=== PATIENT | female | born 1930 | race Caucasian/White ===

== ENCOUNTER → 2017-02-08 | Outpatient (CLI) | payer MEDICARE ==
[~2017-02-08] MED LIST: ACET50TA PO; AMLO10TA PO; ASPI81TA85 PO; AVAP75TA PO; BACT2OIN2 TOP; BUSP15TA47 PO; CALC-190 PO; CALCCHW8 PO; CICL0.776 EX; CIPR500T89 PO; ESTR625TA PO; ESTRADIOL; EYE VITE; EYECAP PO; FISH100049 PO; MULTCAP PO; NYST10CR EXT; PERCOCET PO; PROT0.1O EX; PROTPAK PO; SIMV40TA2 PO; VITATAB11 PO; XANA0.25 PO
[2017-02-08 11:32] LABS: MEAN CORPUSCULAR HEMOGLOBIN 27.4 pg (27.0-33.0); MEAN CORPUSCULAR HGB CONC 31.1 g/dl (32.0-36.5); MEAN CORPUSCULAR VOLUME 88.1 fl (80.0-96.0); RED CELL DISTRIBUTION WIDTH 14.2 % (11.5-14.5); WHITE BLOOD COUNT 10.3 K/mm3 (4.0-10.0)
[2017-02-08 11:41] LABS: INR 0.96
[2017-02-08 11:44] LABS: CALCIUM OXALATE CRYSTALS LARGE
[2017-02-08 12:08] LABS: ALBUMIN 3.2 GM/DL (3.2-5.2); ALBUMIN/GLOBULIN RATIO 0.63 (1.00-1.93); BILIRUBIN,TOTAL 0.4 MG/DL (0.2-1.0); CALCIUM LEVEL 9.2 MG/DL (8.8-10.2); CREATININE FOR GFR 1.3 MG/DL (0.55-1.02); GLOMERULAR FILTRATION RATE 41.2 (>32); POTASSIUM SERUM 3.9 MEQ/L (3.5-5.1); TOTAL PROTEIN 8.3 GM/DL (6.4-8.2)
--- NOTE | 2017-02-08 12:09 | REP ---
Clinical: Preoperative assessment . Comparison: 02/19/2015 . Technique: PA and lateral. Findings: The mediastinum and cardiac silhouette are normal. The airway is midline and patent. The lung weaver are clear and without acute consolidation, effusion, or pneumothorax; trace left basilar chronic changes remain stable. The skeletal structures are intact and normal. Impression: 1. No acute cardiopulmonary process. Signed by [place] Gabriel MD 02/08/2017 12:00 P
--- NOTE | 2017-02-09 14:31 | ECGEPIP ---
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
== END ==
LOC: M ADMPAT 10:06
PROVIDERS: ATTEND Orthopaedic Surgery
DX: Z01.818 Encounter for other preprocedural examination (principal); M17.12 Unilateral primary osteoarthritis, left knee; Z79.899 Other long term (current) drug therapy

== ENCOUNTER 2017-02-21 11:53 | Inpatient (IN) | payer MEDICARE ==
[2017-02-08 11:17] VITALS: BP 138/76
--- NOTE | 2017-02-17 08:56 | HPE ---
DATE OF ADMISSION: 02/21/2017 CHIEF COMPLAINT: Left knee pain and stiffness. ATTENDING PHYSICIAN: Dr. Dennis Tian HISTORY: This is a pleasant 86-year-old female patient with progressively worsening left knee pain and stiffness. She failed to improve with conservative management. She has elected for surgery for continued symptoms. She has pain with weightbearing activities and activities of daily living. She has consented for a left total knee arthroplasty by Dr. Tian. Medical optimization by Dr. Caal. X-rays notable for end-stage degenerative changes of the left knee. ALLERGIES: - CELEBREX - CODEINE - PENICILLINS CURRENT MEDICATIONS: - fish oil 1000 mg 1 tablet twice a day - aspirin 81 mg 1 tablet once per day (she will discontinue that 5 days prior to surgery) - vitamin B complex 1 tablet once per day - Protonix 40 mg 1 tablet once per day - calcium 600 mg with vitamin D 1 tablet twice a day - multivitamin once per day - buspirone 10 mg 1 tablet twice a day - Premarin 0.625 mg apply as needed topically - Zocor 40 mg 1 tablet in the evening - Tylenol as needed - Avapro 300 mg 1 tablet once per day - Norvasc 10 mg 1 tablet once per day MEDICAL HISTORY (Includes): 1. End-stage degenerative changes of the left knee. 2. Hypertension. 3. Chronic renal failure stage III. 4. Gastric reflux disease. 5. Irritable bowel syndrome. 6. Migraines. 7. Elevated cholesterol. 8. Cervical and lumbar degenerative disc disease. 9. History of a deep vein thrombosis (DVT) in 2008. 10. History of Clostridium difficile. PAST SURGICAL HISTORY (Includes): 1. Right total knee arthroplasty. 2. Cataract surgery. 3. Tubal ligation. 4. Hysterectomy. 5. Carpal tunnel release. 6. Bilateral knee scopes. 7. Bladder suspension. 8. Colonoscopies SOCIAL HISTORY: She does not smoke and she does not use alcohol. She is retired. FAMILY HISTORY: Noncontributory. REVIEW OF SYSTEMS: Denies fever or chills. Denies chest pain, shortness breath or cough. Denies difficulty breathing. Denies abdominal pain. Denies nausea or vomiting. Has persistent pain with weightbearing activities in her left knee. Denies recent upper respiratory infection (URI) or urinary tract infection (UTI) symptoms. PHYSICAL EXAMINATION: Today, reveals a well-nourished, well-developed, alert female patient. She ambulates with a slow gait. She uses a cane for ambulation. Exam of the left knee does reveal irritability on knee range of motion. Range of motion is near full, stable to varus and valgus stress. The skin is intact. No erythema, edema or ecchymosis. She can sensate light touch as well. Perfused left lower extremity. Dorsalis pedis, posterior tibial pulses are palpable. Neck is supple without adenopathy or jugular venous distention (JVD). Lungs: Clear to auscultation without rales or wheeze. Heart: Regular rate and rhythm. Abdomen: Bowel sounds are present. Height 5 feet 5 inches, weight 206 pounds, temperature 98.0, pulse 88, respirations 20, blood pressure 142/68. LABORATORY DATA: PT 12.9, INR 0.96. Urinalysis (UA) appears to be contaminated, urine culture is contaminated. Sed rate is 63. WBC count is 10.3, RBC count is 4.0, hemoglobin 11.1, hematocrit 35.8, glucose 118, BUN 20, creatinine 1.30. Sodium 140, potassium 3.9. Nasal and sinus culture normal eve. Chest x-ray no acute cardiopulmonary process noted. EKG multi focal atrial rhythm. IMPRESSION: Symptomatic osteoarthritis of the left knee. PLAN: Consented for a left total knee arthroplasty by Dr. Tian.
[~2017-02-21] VITALS: Ht 165.1 cm; Wt 93.0 kg
[2017-02-21] MEDS ORDERED: LR 1,000 ML IV SCH ×4 (12:15→19:00)
[2017-02-21] MEDS ORDERED: ceFAZolin 2 GM/D5W 50 ML IV BAG (J0690) As Ordered ONE ×2 (13:00→16:20)
[2017-02-21] MEDS ORDERED: ACETAMINOPHEN 500 MG TAB As Ordered ONE (13:01)
[2017-02-21] MEDS ORDERED: ACETAMINOPHEN 500 MG TAB PO ONE (13:15)
[2017-02-21] MEDS ORDERED: COUM1TAB17 PO (13:24)
[2017-02-21] MEDS ORDERED: MIDAZOLAM INJ 2 MG/2 ML VIAL (J2250) As Ordered ONE ×2 (14:57→16:50)
[2017-02-21] MEDS ORDERED: fentaNYL 100 MCG/2 ML INJECTION (J3010) As Ordered ONE ×2 (14:57→16:50)
[2017-02-21] MEDS: fentaNYL 100 MCG/2 ML INJECTION (J3010) IV PRN ×2 (15:06→15:10)
[2017-02-21] MEDS: MIDAZOLAM INJ 2 MG/2 ML VIAL (J2250) IV PRN ×2 (15:06→15:10)
[2017-02-21] MEDS: BUPIVACAINE HCL 0.5% 10 ML VIAL As Ordered ONE ×2 (15:34→17:17)
[2017-02-21] MEDS ORDERED: TRANEXAMIC ACID 100 MG/ML 10ML VIAL As Ordered ONE (15:35)
[2017-02-21] MEDS ORDERED: BUPIVACAINE HCL 0.25% 10 ML VIAL As Ordered ONE (15:36)
[2017-02-21] MEDS ORDERED: EPINEPHrine INJ 1 MG/ML 1ML AMP As Ordered ONE (15:36)
[2017-02-21] MEDS: BUPIVACAINE HCL 0.25% 30 ML VIAL As Ordered ONE ×2 (15:36→17:19)
[2017-02-21] MEDS: fentaNYL 100 MCG/2 ML INJECTION (J3010) As Ordered ONE ×2 (15:36→17:19)
[2017-02-21] MEDS ORDERED: CLINDAMYCIN INJ 900MG/6ML VIAL As Ordered ONE (15:37)
[2017-02-21] MEDS ORDERED: ceFAZolin 1GM INJ (J0690) As Ordered ONE (16:19)
[2017-02-21] MEDS ORDERED: PROPOFOL 200 MG/20 ML VIAL As Ordered ONE ×2 (16:57→17:44)
[2017-02-21] MEDS ORDERED: ePHEDrine SULFATE 25 MG/5 ML(5MG/ML) SYRINGE As Ordered ONE (17:10)
[2017-02-21] MEDS ORDERED: PHENYLephrine HCL 500 MCG/5 ML (100MCG/ML) SYRINGE (J2370) As Ordered ONE (17:10)
[2017-02-21] MEDS ORDERED: BUPIVACAINE LIPOSOME/PF 1.3% 20 ML VIAL (13.3MG/ML)(EXPAREL) As Ordered ONE (17:28)
[2017-02-21] MEDS ORDERED: ONDANSETRON 4MG/2ML VIAL (J2405) As Ordered ONE (17:45)
[2017-02-21] MEDS ORDERED: MORPHINE 1MG/ML IN 0.9% NACL 100ML IV BAG As Ordered ONE (18:05)
[2017-02-21] MEDS ORDERED: NALBUPHINE HCL 10 MG/ML AMP (J2300) IV PRN (19:00)
[2017-02-21] MEDS ORDERED: NALOXONE INJ 0.4 MG/1 ML VIAL (J2310) IV PRN (19:00)
[2017-02-21] MEDS ORDERED: fentaNYL 100 MCG/2 ML INJECTION (J3010) IV PRN (19:00)
[2017-02-21] MEDS ORDERED: MORPHINE 1MG/ML IN 0.9% NACL 100ML IV BAG IV PRN (19:00)
[2017-02-21] MEDS ORDERED: ONDANSETRON 4MG/2ML VIAL (J2405) IV PRN ×2 (19:00)
[2017-02-21] MEDS ORDERED: EPIDURAL/PCA KEYS XX PRN (19:00)
[2017-02-21] MEDS ORDERED: diphenhydrAMINE INJ 50MG/ML VIAL (J1200) IV PRN (19:00)
--- NOTE | 2017-02-21 19:14 | RO ---
DATE OF PROCEDURE: 02/21/2017 PREPROCEDURE DIAGNOSIS: Left knee valgus degenerative arthritis. POSTPROCEDURE DIAGNOSIS: Left knee valgus degenerative arthritis. OPERATIVE PROCEDURE: Left total knee arthroplasty using a size 2.5 cruciate retaining femoral component with a 2.5 tibial tray and a 32 mm polyethelene button and a 12.5 rotating platform poly insert. Prosthesis made by [employer], is a PFC knee. All components were cemented. SURGEON: Jade Tian MD MENTAL HEALTH PROGRAM MANAGER: Justus Watts MD ANESTHESIA: Spinal with left femoral nerve block. SPECIMENS: Joint surface. ESTIMATED BLOOD LOSS: Less than 50 mL. DESCRIPTION OF PROCEDURE: Antibiotics were given intravenously preoperatively, and successful left femoral nerve block and then a spinal anesthetic was established. Tourniquet placed on the left upper thigh and not inflated. The left lower extremity was prepped and draped in the usual sterile fashion. After appropriate time-out, the tourniquet was inflated. Then the longitudinal incision was made for a medial parapatellar approach to the knee. Bovie cautery was used to coagulate crossing vessels. The arthrotomy was then performed. Minimal limited dissection of the proximal medial tibial plateau was performed because of the valgus alignment of the knee. The patella was then everted and the knee flexed. The anterior cruciate ligament (ACL) was debrided. Drill placed down the center of the femoral canal followed by the distal femoral cutting jig set at 5 degrees valgus cut at 10 mm resection level for a valgus knee. The block was pinned into position. Distal femoral cut performed. AP sizing jig measured for 2.5 size femoral component and there was no excessive posterior femoral wear, so the skids were placed as they laid and then the 3 degrees external rotation block was applied and pinned into position. Then the four-in-one block applied. The epicondylar axis appeared to show good alignment and white sideline appeared to be perpendicular in terms of rotation of the femoral component. I then performed the anterior posterior chamfer cuts. I then exposed the proximal tibia using the extramedullary alignment jig to be sure we were parallel to mechanical axis. Referenced off the lateral tibial condyle at 4 mm resection level and in the opposite measured at 6. It appeared to be parallel, thus I pinned the block into that position. Extramedullary niles was used afterward to confirm good position. Then the proximal tibial osteotomy performed. We then placed the laminar biomaterials engineer laterally, performed a completion medial meniscectomy, debrided the posterior and medial osteophytes then placed the laminar biomaterials engineer medially and performed a completion lateral meniscectomy with debridement of posterolateral osteophytes. Then the spacer blocks were applied and she actually had very symmetric balancing despite the valgus knee in terms of mediolateral tightness and the 12.5 block fit the best. There was good stability with varus valgus stress testing. We then exposed the proximal tibia once again and a 2.5 tibial tray fit the best. It was pinned into position followed by the reamer and broach and then the trial polyethylene was placed and the trial femoral component, brought the knee to extension, everted the patella, performed a patellar osteotomy, sized for a 32 button. Lug holes were drilled. The patellar prosthesis was placed and patellofemoral tacking was actually anatomic. Again, good stability with varus valgus stress testing both in flexion and extension was noted, thus I felt these were the appropriate size components to use. Then removed all the trial components, drilling the lug holes for the femur, and prepared the bony surfaces for cementing with a copious amount of pulsatile lavage irrigant solution as the cement was being mixed on the back table. After all the surfaces were thoroughly dried, I cemented the tibial tray, removed excess cement, placed polyethylene and cemented the femoral component. Removed excess cement. Brought the knee into extension, everted the patella, and cemented the patellar button and held it with a clamp until the cement had hardened and while we were waiting for it to harden copiously pulsatile lavage irrigated out the knee joint and then instilled the Tranexamic acid. Once the cement had hardened, we used a total of 20 mL vial of Exparel, diluted up to 60 mL volume with normal saline and used that to inject Exparel in the periosteum of the femur and the tibia as well and then we closed the capsule with two #1 PDS sutures in the apex of the wound and one in the medial peripatellar area, then a running #1 PDS Stratafix was used around the capsule and then we placed more Exparel in the deep tissues, not superficial around the quad tendon and patellar tendon. We irrigated again between layers, closed the deep subdermal tissues with interrupted #2-0 PDS sutures. Skin was closed with bianca, covered by Adaptic dry sterile bulky dressing. The tourniquet was released after we had closed the capsule. Then she was transferred to the recovery room in stable condition. There were no intraoperative complications.
[2017-02-21 20:24] VITALS: BP 199/91
[2017-02-21 20:54] VITALS: BP 150/70
[2017-02-21] MEDS ORDERED: ALPRAZolam 0.25 MG TAB PO PRN (21:00)
[2017-02-21] MEDS ORDERED: WARFARIN SOD 5 MG TAB PO SCH (21:00)
--- NOTE | 2017-02-21 21:09 | CR.PDOC ---
[facility] Consultation Consultation DATE OF CONSULTATION: 02/21/17 PRIMARY CARE PHYSICIAN: Dr. Thompson ATTENDING PHYSICIAN: Dr. Tian REASON FOR CONSULTATION/CHIEF COMPLAINT: Medical comanagement HISTORY OF PRESENT ILLNESS: This 86-year-old female with past medical history of CKD stage III, hypertension , migraines, cervical and lumbar degenerative disc disease, GERD, hyperlipidemia , history of C. difficile who presents with severe osteoarthritis and is status post left total knee. ? history of DVT in 2008 per chart however patient denies. Patient denies any chest pain/shortness of breath/palpitations. No nausea/ vomiting/abdominal pain. We have been consulted for medical comanagement. ALLERGIES: Please see below. HOME MEDICATIONS: Please see below. PAST MEDICAL HISTORY: As per HPI PAST SURGICAL HISTORY: Right total knee arthroplasty, c ataract surgery, BTL, HYST, Bladder suspension, wrist surgery. D&C. FAMILY HISTORY:Non contributory SOCIAL HISTORY: Denies tobacco, alcohol, illicit drug use. REVIEW OF SYSTEMS: HEENT: Denies sore throat/headache CARDIOVASCULAR: Denies chest pain/palpitations RESPIRATORY: Denies shortness of breath/cough GASTROINTESTINAL: denies nausea/vomiting GENITOURINARY: Denies dysuria/urinary urgency. MUSCULOSKELETAL: Denies myalgias/arthralgias NEUROLOGICAL: Denies any focal weakness PHYSICAL EXAMINATION: Vitals: (see below) General: No acute distress, laying comfortably in bed. HEENT: Moist mucous membranes. Neck: No JVD or lymphadenopathy Cardiac: RRR, No murmurs Pulm: Clear to auscultation b/l. No wheezing, rhonchi Abd: NT/ND + BS Ext: No edema or cyanosis LABORATORY DATA: Please see below. ASSESSMENT/PLAN: 1. POD#0 status post left total knee repair-management per orthopedics. Pain management by orthopedics as well. 2. HTN- amlodipine restarted. Continue restarting Avapro tomorrow if BP is elevated. 3. CKD stage 3 - will check BMP. Patient currently 1.3. Monitor Cr. 4. ??H/o DVT in 2008 5. HLD on statin 6. H/o cervical and lumbar degenerative disc disease 7. H/o migraines 8. GERD on PPI DVT prophylaxis- per orthopedics Patient will be followed by Dr. Ahmet Diaz starting 02/22/17 at 7 AM. Vital Signs/I&O Vital Signs Date Time Temp Pulse Resp B/P (MAP) Pulse Ox O2 Delivery O2 Flow Rate FiO2 02/21/17 19:56 97.5 84 16 158/73 (101) 100 Nasal Cannula 2 Allergies Coded Allergies: Penicillins (Verified Allergy, Intermediate, 12/18/12) SWELLING AT INJECTION SITE Penicillins Cross Reactors (Verified Allergy, Intermediate, 12/18/12) SWELLING AT INJECTION SITE Codeine (Verified Adverse Reaction, Intermediate, NAUSEA, 04/06/14) Celecoxib (Unverified Adverse Reaction, Unknown, renal failure, 02/08/17) Home Medications Scheduled (Protonix) 40 Mg Sunny, 40 MG PO DAILY, (Reported) (Multivitamins) 1 Cap Cap, 1 CAP PO DAILY, (Reported) Acetaminophen (Mapap) 500 Mg Tab, 1,000 MG PO DAILY, (Reported) Amlodipine Besylate (Norvasc) 10 Mg Tab, 10 MG PO DAILY, (Reported) Aspirin (Aspir-81) 81 Mg Tab, 81 MG PO BID, #30 (Reported) B1/B2/B3/B5/B6 (Vitamin B Complex) 1 Tab Tab, 1 TAB PO DAILY, (Reported) Buspirone HCl (Buspirone HCl) 15 Mg Tab, 15 MG PO BID, (Reported) Calcium/Vitamin D (Calcium 1000 + D 1000-800 mg-Unit) 1 Tab Tab, 1 TAB PO DAILY, (Reported) Fish Oil (Fish Oil 1000 mg) 1 Cap Cap, 1 CAP PO BID, (Reported) Irbesartan (Avapro) 75 Mg Tab, 75 MG PO DAILY, (Reported) Multivitamins (Eye Vitamins) 1 Cap Cap, 1 CAP PO DAILY, (Reported) Nystatin (Nystatin) 100,000 Unit/Gm Cre, 1 UNIT EXT BID, (Reported) Simvastatin - High Dose (Simvastatin) 40 Mg Tab, 40 MG PO DAILY, (Reported) Warfarin Sod (Coumadin) 5 Mg Tab, 5 MG PO DAILY, (Reported) Scheduled PRN Alprazolam (Xanax) 0.25 Mg Tab, 0.25 MG PO BID PRN for ANXIETY/AGITATION, ( Reported) Conjugated Estrogens (Premarin) 0.625 Mg Tab, 0.625 MG PO PRN PRN for DRY SKIN, (Reported) Miscellaneous Medications (Calcium 1200 8613-2008 mg-Unit) 1 Chw Chw, 1 CHW PO, (Reported) ARMANDO FARRELL MD Feb 21, 2017 21:09
[2017-02-21] MEDS ORDERED: ACETAMINOPHEN TAB 650MG DOSE (2X325MG) PO PRN (21:15)
[2017-02-21] MEDS ORDERED: FLEET ENEMA PR PRN (21:15)
[2017-02-21 21:29] LABS: MEAN CORPUSCULAR HEMOGLOBIN 26.2 pg (27.0-33.0); MEAN CORPUSCULAR HGB CONC 30.3 g/dl (32.0-36.5); MEAN CORPUSCULAR VOLUME 86.3 fl (80.0-96.0); WHITE BLOOD COUNT 13.6 K/mm3 (4.0-10.0)
[2017-02-21] MEDS: busPIRone 5 MG TAB PO SCH (21:45)
[2017-02-21] MEDS: NYSTATIN CREAM 15 GM EXT SCH (21:46)
[2017-02-21 21:54] VITALS: BP 161/96
[2017-02-21 21:54] LABS: CALCIUM LEVEL 9.1 MG/DL (8.8-10.2); CREATININE FOR GFR 1.1 MG/DL (0.55-1.02); POTASSIUM SERUM 4.4 MEQ/L (3.5-5.1)
[2017-02-21 22:54] VITALS: BP 115/58
[2017-02-21 23:54] VITALS: BP 113/55
[2017-02-22 00:54] VITALS: BP 118/60
[2017-02-22 04:00] VITALS: BP 113/54
[2017-02-22] MEDS ORDERED: PERCOCET 5MG/325MG TAB PO PRN (06:30)
--- NOTE | 2017-02-22 07:02 | IPN ---
DATE: 02/22/2017 86-year-old female seen at bedside. No overnight issues reported. She is resting comfortably. I did notice however that she has had some increasing oxygen requirements, but she denies any shortness of breath, productive sputum or cough. No fevers, chills or rigors. No abdominal pain. Feels that her postoperative pain is well-controlled. OBJECTIVE: Temperature is 97.5, pulse 75, respiratory rate 18 nonlabored, blood pressure (BP) 113/54, SPO2 is 94% on between 3 to 5 liters. General: The patient appears to be in no acute distress. She is alert, pleasant. HEENT: Unremarkable. Lungs: Diminished bibasilar breath sounds, otherwise clear. Heart: Regular rate and rhythm. Abdomen: Soft. Extremities: No edema. No calf tenderness. Sensation is intact. LABS: Pending at this time. ASSESSMENT/PLAN: 1. Postoperative day #1 for status post left total knee arthroplasty. Pain management, physical therapy and anticoagulation per orthopedics. 2. Hypertension. Amlodipine has been resumed. Will resume Avapro this morning. Will keep an eye on her blood pressure. 3. Chronic kidney disease (CKD) stage III. Will continue to monitor her BMPs. Her creatinine has been at baseline. Will continue to monitor this. 4. Hypoxia, which the patient appears to be relatively asymptomatic with. Will go and do a chest x-ray. I did notice she received over 2 liters of IV fluids yesterday. At any rate, will see how her chest x-ray looks. She does not appear to be in any apparent respiratory distress currently. 5. History of deep vein thrombosis (DVT) in 2008. DVT prophylaxis on board per orthopedics. 6. Hyperlipidemia. Continue on statin. 7. History of cervical and lumbar degenerative disc disease, stable. 8. History of migraines. No current issues. 9. Gastroesophageal reflux disease (GERD). Continue on proton pump inhibitor (PPI). 10. DVT prophylaxis per orthopedics. DISPOSITION: The patient does appear to be doing well today. Will see how she does with starting physical therapy. Will continue to follow along during her hospital stay for any additional medical management issues.
[2017-02-22 07:23] LABS: MEAN CORPUSCULAR HEMOGLOBIN 26.4 pg (27.0-33.0); MEAN CORPUSCULAR HGB CONC 30.5 g/dl (32.0-36.5); MEAN CORPUSCULAR VOLUME 86.8 fl (80.0-96.0); WHITE BLOOD COUNT 13.4 K/mm3 (4.0-10.0)
[2017-02-22 07:26] LABS: INR 1.07
[2017-02-22 07:39] LABS: CALCIUM LEVEL 8.9 MG/DL (8.8-10.2); CREATININE FOR GFR 1.34 MG/DL (0.55-1.02); GLOMERULAR FILTRATION RATE 39.8 (>32); POTASSIUM SERUM 4.3 MEQ/L (3.5-5.1)
[2017-02-22] MEDS: busPIRone 5 MG TAB PO SCH (08:31)
[2017-02-22] MEDS: ONDANSETRON 4 MG TAB (S0181) PO PRN ×2 (08:31→12:37)
[2017-02-22 08:32] VITALS: BP 113/54
[2017-02-22] MEDS: NYSTATIN CREAM 15 GM EXT SCH (08:33)
[2017-02-22] MEDS: PERCOCET 5MG/325MG TAB PO PRN ×2 (08:33→12:37)
[2017-02-22] MEDS ORDERED: SENOKOT S TAB PO SCH (09:00)
[2017-02-22] MEDS ORDERED: MOM 30ML SUSPENSION UDC PO SCH (09:00)
[2017-02-22] MEDS ORDERED: OCUVITE 1 TAB PO SCH (09:00)
[2017-02-22] MEDS ORDERED: MIRALAX *UNIT DOSE* 17GM PACKET PO SCH (09:00)
[2017-02-22] MEDS ORDERED: SIMVASTATIN 40 MG TAB PO SCH (09:00)
[2017-02-22] MEDS ORDERED: amLODIPine 5 MG TAB PO SCH ×2 (09:00)
--- NOTE | 2017-02-22 11:25 | REP ---
LEFT KNEE: AP and lateral views of the left knee are performed. Total knee prosthesis appears to be in good position. Structures are well aligned and intact. Metallic skin bianca are seen anteriorly. Signed by Pascual Kaufman MD 02/22/2017 03:17 P
--- NOTE | 2017-02-22 11:27 | REP ---
CHEST, TWO VIEWS: HISTORY: Shortness of breath. COMPARISON: 02/08/2017 Patchy density is present in the right lower lobe consistent with atelectasis or infiltrate. The left lung is clear. The heart is normal in size. The pulmonary vasculature is normal in appearance. The bony structure is intact. IMPRESSION: Right lower lobe atelectasis or infiltrate. Signed by Quintin Chery MD 02/22/2017 11:32 A
[2017-02-22] MEDS ORDERED: ROPIvacaine 0.5% 30 ML INJECTION (J2795) ONE (16:09)
[2017-02-22] MEDS ORDERED: LIDOCAINE 1% MDV 20ML VIAL ONE (16:09)
[2017-02-22] MEDS ORDERED: dexameTHASONE 10 MG/1 ML VIAL PRES.FREE (J1100) ONE (16:09)
[2017-02-22] MEDS ORDERED: WARFARIN SOD 5 MG TAB PO ONE (17:00)
--- NOTE | 2017-02-24 10:52 | DSES ---
DATE OF ADMISSION: 02/21/2017 DATE OF DISCHARGE: 02/22/2017 ADMISSION DIAGNOSIS: Left knee arthritis. OTHER DIAGNOSES: Hypertension. Chronic kidney disease stage III. Gastroesophageal reflux disease (GERD). Irritable bowel syndrome (IBS). Migraines. Elevated cholesterol. History of deep venous thrombosis (DVT) in 2008. History of Clostridium difficile. DISCHARGE DIAGNOSIS: Left knee arthritis status post left total knee arthroplasty. OPERATION PERFORMED: Left total knee arthroplasty. HISTORY: This is an 86-year-old female with progressively worsening left knee pain and stiffness. The patient was admitted for elective left knee replacement. HOSPITAL COURSE: The patient was admitted on the day of surgery and underwent a left knee arthroplasty which was uneventful. She did well in the postoperative period and her hospital course was without complications. The patient was up with physical therapy per their protocol and her pain was controlled. On the day of discharge, the patient was sent to Pain Medicine and Rehabilitation for prolonged therapy. She was weightbearing as tolerated, will move her knee to prevent stiffness, will use adjusted dose Coumadin and SENG stockings for 30 days postoperatively for DVT prophylaxis and she will use oral medications for pain control. Also she will follow in the office in 2 weeks for staple removal, will resume preoperative medications and diet and she was given instructions for wound monitoring and activity limitations. Please refer to the medical record for further detail. edited: 02/24/2017 1343 tkf [email or web address]
== END 2017-02-22 16:10 | DRG 470 ==
LOC: M OR 11:53 → M MS5PR 20:18
PROVIDERS: ADMIT Orthopaedic Surgery; ATTEND Orthopaedic Surgery
PROC: 0SRD0J9 Replacement of Left Knee Joint with Synthetic Substitute, Cemented, Open Approach (ICD-10-PCS; principal; 2017-02-21 14:50)
DX: M17.12 Unilateral primary osteoarthritis, left knee (principal); I12.9 Hypertensive chronic kidney disease with stage 1 through stage 4 chronic kidney disease, or unspecified chronic kidney disease; N18.3 Chronic kidney disease, stage 3 (moderate); K21.9 Gastro-esophageal reflux disease without esophagitis; G43.909 Migraine, unspecified, not intractable, without status migrainosus; E78.5 Hyperlipidemia, unspecified; M51.36 Other intervertebral disc degeneration, lumbar region; M50.30 Other cervical disc degeneration, unspecified cervical region; Z96.651 Presence of right artificial knee joint; Z88.0 Allergy status to penicillin; Z88.5 Allergy status to narcotic agent; Z88.8 Allergy status to other drugs, medicaments and biological substances; Z79.82 Long term (current) use of aspirin; Z98.51 Tubal ligation status; Z86.718 Personal history of other venous thrombosis and embolism; Z90.710 Acquired absence of both cervix and uterus

== ENCOUNTER 2017-02-22 15:29 | Inpatient (IN) | payer MEDICARE ==
[~2017-02-22] VITALS: Ht 165.1 cm; Wt 96.6 kg
[~2017-02-22 15:29] MED LIST changes: +COUM1TAB17 PO
[2017-02-22 16:14] VITALS: BP 142/67
[2017-02-22] MEDS ORDERED: MAALOX 30 ML SUSP *UDC PO PRN (16:15)
[2017-02-22] MEDS ORDERED: FLEET ENEMA PR PRN (16:15)
[2017-02-22] MEDS ORDERED: NYSTATIN CREAM 15 GM TOP PRN (16:30)
[2017-02-22] MEDS ORDERED: oxyCODONE 5MG TAB PO PRN (16:30)
[2017-02-22] MEDS ORDERED: ALPRAZolam 0.25 MG TAB PO PRN (16:30)
[2017-02-22] MEDS ORDERED: ONDANSETRON 4 MG TAB (S0181) PO PRN (16:45)
[2017-02-22] MEDS ORDERED: WARFARIN SOD 5 MG TAB PO SCH (17:00)
--- NOTE | 2017-02-22 17:21 | PMRNOTEPD ---
PMR Note H&P dictated or miss Jimenez job #[id number]. Patient with left total knee arthroplasty yesterday 02/21/17 with moderate postop anemia and atelectasis on chest x-ray and currently no flatus or bowel passage which may be a factor of not only the anesthesia but also her opioid pain medicines and possible exacerbation of her GERD and irritable bowel syndrome. Patient with moderate anemia and need of DVT prophylaxis currently subtherapeutic on Coumadin but being treated with sequential compression hose and SENG hose. Medicine and orthopedic consults have been sent and patient is here for an estimated seven- day course of rehabilitation to allow. He regained the skills to return to living independently in a senior apartment HOPE STOCK MD Feb 22, 2017 17:21
--- NOTE | 2017-02-22 19:40 | PMRHPE ---
DATE OF ADMISSION: 02/22/2017 REASON FOR ADMISSION: Rehabilitation of left total knee. Secondary to endstage degenerative joint disease (DJD) complicated by postoperative moderate anemia and atelectasis as well as some acute on chronic kidney disease. HISTORY OF THE PRESENT ILLNESS: Patient is an 86-year-old white female who has end-stage DJD and has had her right total knee replacement done in [place] and left knee was continuing to be a problem and patient elected to have this knee replaced. Patient was admitted to yesterday 02/21/[address] Dennis Tian performed the left total knee arthroplasty. Patient has had some problem with bowel as well as a little bit of breathing problem for which chest x-ray today showed some atelectasis. Patient also has not had a bowel movement or passed gas since her surgery and has a bit of bloating and nausea which is notes decreasing. Patient has however participated in evaluation and some training with physical and occupational therapy. She is familiar with rehabilitation after her right total knee arthroplasty and is highly motivated to do this to be able to return to living in her accessible apartment alone. PAST MEDICAL HISTORY: Includes, atherosclerotic cardiovascular disease with hyperlipidemia, hypertension, and some chronic kidney disease stage 3. Patient with a history of deep venous thrombosis (DVT) in 2008 and degenerative joint and dis disease including cervical and lumbar discs. She also reports not having actual headaches but visual and balance disturbances rather than the migraines listed in her record. Patient also has gastric reflux disease and irritable bowel syndrome and a history of clostridium difficile. PAST SURGICAL HISTORY: Right total knee arthroplasty, cataract surgery, tubal ligation, hysterectomy, carpal tunnel release, bilateral arthroscopies of the knees, bladder suspension and colonoscopies. FAMILY HISTORY: Noncontributory. SOCIAL HISTORY: Patient lives alone in an accessible senior apartment. Does not smoke, does not drink alcohol and is retired. ALLERGIES: CELEBREX, CODEINE which cause nausea and PENICILLINS and PENICILLIN CROSS REACTORS. MEDICATIONS ON TRANSFER: - Tylenol - Xanax - amlodipine - BuSpar - multivitamin - nystatin cream for skin rash - Zofran for as needed for nausea and vomiting - oxycodone 5 mg per pain 1-7 and 10 mg for pain 8-10 - simvastatin 40 mg for cholesterol - Mylanta for dyspepsia - Milk of magnesia for constipation - pantoprazole for gastroesophageal reflux disease (GERD) - Senokot for a bowel program - Fleet enema for constipation - warfarin and anticoagulation and DVT prophylaxis. Patient receiving 5 mg tonight. REVIEW OF SYSTEMS: Patient reports negative on HEENT. Negative neck. Negative pulmonary. Negative cardiac however some nausea and abdominal bloating on gastrointestinal. Genitourinary negative. Musculoskeletal, pain in the knees, in the left knee and some mild pain in other joints. Neurologic negative at this time except for feeling a little anxious. PHYSICAL EXAMINATION: GENERAL: Patient is an average height 96 kg, elderly white female who is alert, laying in bed in mild musculoskeletal, and mild to moderate GI distress. Still having some nausea though she notes much less than earlier today. VITAL SIGNS: Temperature 97.5, blood pressure 113/54, pulse 75, respirations 18, pulse oximetry 94% on 5 liters of oxygen. HEENT: Normocephalic, atraumatic. Pupils are approximately 3 mm across. Extraocular motion are intact. Pupils are equal, round, and reactive to accommodation and hearing is fair and good. NECK: Supple. LUNGS: Clear in all weaver to auscultation. CORONARY: Shows a regular rate and rhythm with normal S1, S2 and 2/4 radial pulses and fairy good profusion above the calves and the feet with normal temperature. ABDOMEN: Mild distended with tympany throughout but no palpable masses or tenderness and bowel sounds are heard in all quadrants. EXTREMITIES: Bilateral upper extremities with full active range of motion. Lower extremity functional range of motion of the right lower extremity, left lower extremity not tested with some guarding of the left knee. NEUROLOGICALLY: The patient is alert and oriented times four. Speech is mildly anxious and slightly pressured but pleasant and cooperative and patient is very talkative. Memory is intact. Sensory motor is intact except for guarding of the left knee. Patient does have a bulky dressing on the knee and has been using sequential compression hose as well as SENG hose on both lower extremities. Deep tendon reflexes show 2/4 biceps, triceps, brachial radialis, trace ankle jerks and right knee jerks is 1/4, left not tested in a bulky dressing. Light touch and vibration are intact in bilateral upper and lower extremities. It appears patient may be slightly reduced to vibration at the right ankle. LABORATORY DATA: Shows WBC mildly elevated at 13.4, hemoglobin and hematocrit 9.3 and 30.6% for a moderate anemia that has declined from last night to today. Chemistry: Showing normal electrolytes but BUN has risen from 19 yesterday postoperatively to 24 and creatinine from 1.10 to 1.34. Patient is not yet anticoagulated with an INR of 1.07 this morning. X-rays show atelectasis in the right lower lobe versus infiltrate, otherwise normal exam and left knee shows total knee prosthesis in good position with anterior metallic bianca. ADMITTING DIAGNOSES: 1. Rehabilitation of left total knee arthroplasty with some ankle factors interfering with patient's recovery. Patient has started a program of acute intensive physical and occupational therapy 3 hours per day along with rehabilitation nursing and physiatry. Patient needs to progress to being able to do approximately 5 stairs for mobility in the community and ambulation of greater than 150 feet which is 140 feet more than earlier today and no stairs earlier today. 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 2. Atelectasis. We will go ahead and start patient on incentive spirometry and consider other respiratory therapy, intervention depending on whether fever or pneumonia show up. Consultation to Dr. Holloway and his associates has been made to have followup for this and the other following medical problems. Patient also with order for titrating oxygen and keep it at 92% or greater. 3. Acute on chronic kidney disease. We will go ahead and continue to monitor these as the patient is stressed by surgery. 4. Atherosclerotic cardiovascular disease with hypertension and hyperlipidemia and secondary DVT. Will have patient on sequential compression stockings and SENG hose to prevent DVT and proceed with Coumadin treatment. Ms. Gregges from orthopedics will be making medication adjustments on the Coumadin daily. Orthopedics has been consulted to follow as needed. 5. GERD with irritable bowel syndrome. Currently need to get patient past the initial flow down to the bowel from anesthesia and exacerbated by use of anti-opioids. Will continue to watch this closely and pursue the bowel program to stimulate the bowel. Patient has had MiraLAX and Milk of magnesia today already but yet without results. 6. History of migraine equivalence affecting just vision and balance without pain. These will be rather complicating as patient is trying to regain independence, balance and ambulation abilities to return home. Will continue to observe these and hopefully these will not be a problem moving forward. POST-ADMISSION PHYSICAL EVALUATION: Patient is an 86-year-old lady who has end stage arthritis in the knee that was replaced yesterday and should do well the environment one that addresses her multiple medical problems detailed above. I do feel the patient is consistent with the preadmission screen and especially based on her prior history of short term rehabilitation for her right total knee arthroplasty and her current evaluation in physical and occupational therapy I do feel that she is quite able to participate and benefit from acute intensive rehabilitation 3 hours per day and I anticipate will able to return to her home and her prognosis overall is good. I anticipate her length of stay at 7 days. Time spent on chart review, history and physical, and documentation required greater than 70 minutes.
[2017-02-22 20:00] VITALS: BP 146/65
[2017-02-22] MEDS: busPIRone 5 MG TAB PO SCH (20:23)
[2017-02-22] MEDS: SENNA 8.6 MG TAB (SENOKOT) PO SCH (20:23)
[2017-02-23] MEDS: oxyCODONE 5MG TAB PO PRN ×4 (00:54→21:40)
[2017-02-23 04:45] VITALS: BP 158/70
[2017-02-23 08:02] LABS: EOS % 0.3 % (0.0-3.0); LARGE UNSTAINED CELL # 0.1 K/mm3 (0.0-0.4); LARGE UNSTAINED CELL % 1.4 % (0.0-4.0); LYMPH # 1.7 K/mm3 (1.5-4.5); LYMPH % 16.2 % (24.0-44.0); MEAN CORPUSCULAR HEMOGLOBIN 26.5 pg (27.0-33.0); MEAN CORPUSCULAR HGB CONC 30.9 g/dl (32.0-36.5); MEAN CORPUSCULAR VOLUME 85.7 fl (80.0-96.0); MONO # 0.7 K/mm3 (0.0-0.8); MONO % 6.6 % (0.0-5.0); NEUTROPHILS # 7.5 K/mm3 (1.8-7.7); NEUTROPHILS % 75.5 % (36.0-66.0); PLATELET COUNT, AUTOMATED 253 k/mm3 (150-450); RED CELL DISTRIBUTION WIDTH 14.1 % (11.5-14.5); WHITE BLOOD COUNT 9.9 K/mm3 (4.0-10.0)
[2017-02-23 08:08] LABS: INR 1.53
[2017-02-23 08:23] LABS: ALBUMIN 2.4 GM/DL (3.2-5.2); ALBUMIN/GLOBULIN RATIO 0.55 (1.00-1.93); BILIRUBIN,TOTAL 0.3 MG/DL (0.2-1.0); CALCIUM LEVEL 8.6 MG/DL (8.8-10.2); CREATININE FOR GFR 1.08 MG/DL (0.55-1.02); GLOMERULAR FILTRATION RATE 51.1 (>32); TOTAL PROTEIN 6.8 GM/DL (6.4-8.2)
[2017-02-23] MEDS: MULTIVITAMINS/MINERALS THERAP 1 TAB PO SCH (09:10)
[2017-02-23] MEDS: busPIRone 5 MG TAB PO SCH ×2 (09:10→20:35)
[2017-02-23] MEDS: PANTOPRAZOLE 40MG TAB (PROTONIX) PO SCH (09:10)
[2017-02-23] MEDS: SIMVASTATIN 40 MG TAB PO SCH (09:10)
[2017-02-23] MEDS: amLODIPine 10 MG TAB PO SCH (09:10)
--- NOTE | 2017-02-23 10:53 | IPNPDOC ---
Artificial Teeth Inspector Progress Note DATE OF SERVICE: 02/23/17 DATE OF ADMISSION: Feb 22, 2017 at 16:14 INPATIENT REHABILITATION ADMISSION DAY: #2 SUBJECTIVE: Patient is a 86-year-old white female with left total knee arthroplasty secondary to end-stage DJD. Patient with atelectasis on x-ray yesterday had very low-grade fevers last night and is now 97 0.6F. She does note being a little anxious but otherwise no complaints except for knee pain which is tolerable. ALLERGIES: See Below MEDICATIONS: Reviewed, see below. OBJECTIVE: VITAL SIGNS: Please see below. PHYSICAL EXAMINATION: GENERAL: Well-nourished well-developed elderly white female who is alert and oriented 4. Patient has mildly anxious but less than when examined yesterday. HEENT: Normocephalic/atraumatic. CARDIOVASCULAR: Regular rate and rhythm with normal S1 and S2. 2/4 bilateral radial pulses. LUNGS: All weaver clear to auscultation. ABDOMEN: Bowel sounds present in all quadrants. NEUROLOGICAL: Sensorimotor exam grossly intact. SKIN: Left knee incision still in bulky dressing. LABORATORY DATA: Reviewed. Please see below. MICROBIOLOGY: Please see below. IMAGING: No new studies since preadmission to the edition. DVT prophylaxis ordered?: Patient continues on Coumadin with SENG hose. INR today is 1.53 and orthopedics as ordered 6 mg of Coumadin for tonight. ASSESSMENT AND PLAN: 1. Rehabilitation left total knee arthroplasty: Patient starting therapy with physical occupational therapy. Pain management seems to be appropriate. 2. Atelectasis: We will encourage incentive spirometry to try and keep lungs open. 3. Postop anemia: Patient with a moderate anemia hemoglobin 8.4 and hematocrit 27.7%. We will continue to monitor this. 4. Hypoalbuminemia: Patient at 2.4 albumin needs to focus on dietary intake. TIME SPENT: Chart Review, examination and documentation requires greater than 35 minutes. Allergies Coded Allergies: Penicillins (Verified Allergy, Intermediate, 12/18/12) SWELLING AT INJECTION SITE Penicillins Cross Reactors (Verified Allergy, Intermediate, 12/18/12) SWELLING AT INJECTION SITE Codeine (Verified Adverse Reaction, Intermediate, NAUSEA, 04/06/14) Celecoxib (Unverified Adverse Reaction, Unknown, renal failure, 02/08/17) Vital Signs Vital Signs Date Time Temp Pulse Resp B/P (MAP) Pulse Ox O2 Delivery O2 Flow Rate FiO2 6/8/17 09:10 75 158/70 02/23/17 08:22 18 Room Air 02/23/17 04:45 97.6 96 Laboratory Data CBC/BMP Laboratory Tests 02/23/17 07:30 Red Blood Count 3.16 L, Mean Corpuscular Volume 85.7, Mean Corpuscular Hemoglobin 26.5 L, Mean Corpuscular Hemoglobin Concent 30.9 L, Red Cell Distribution Width 14.1, Neutrophils (%) (Auto) 75.5 H, Lymphocytes (%) (Auto) 16.2 L, Monocytes (%) (Auto) 6.6 H, Eosinophils (%) (Auto) 0.3, Basophils (%) ( Auto) 0.0, Neutrophils # (Auto) 7.5, Lymphocytes # (Auto) 1.7, Monocytes # (Auto ) 0.7, Eosinophils # (Auto) 0.0, Basophils # (Auto) 0.0, Calcium Level 8.6 L, Aspartate Amino Transf (AST/SGOT) 10 L, Alanine Aminotransferase (ALT/SGPT) 12, Alkaline Phosphatase 71, Total Bilirubin 0.3, Total Protein 6.8, Albumin 2.4 L Labs 24H Laboratory Tests 2 02/23/17 00:55: Urine Appearance HAZY, Urine Color YELLOW, Urine pH 5.0, Urine Specific [place] 1.025, Urine Protein NEGATIVE, Urine Glucose (UA) NEGATIVE, Urine Ketones NEGATIVE, Urine Urobilinogen 0.2, Urine Bilirubin NEGATIVE, Urine Leukocyte Esterase TRACEH, Urine Blood NEGATIVE, Urine Nitrite NEGATIVE, Urine WBC (Auto) 12H, Urine RBC (Auto) 6H, Urine Hyaline Casts (Auto) 0, Urine Bacteria (Auto) NEGATIVE, Urine Squamous Epithelial Cells 5, Urine Mucus (Auto) SMALL, Urine Sperm (Auto) 02/23/17 07:30: White Blood Count 9.9, Red Blood Count 3.16L, Hemoglobin 8.4L, Hematocrit 27.1L , Mean Corpuscular Volume 85.7, Mean Corpuscular Hemoglobin 26.5L, Mean Corpuscular Hemoglobin Concent 30.9L, Red Cell Distribution Width 14.1, Platelet Count 253, Neutrophils (%) (Auto) 75.5H, Lymphocytes (%) (Auto) 16.2L, Monocytes (%) (Auto) 6.6H, Eosinophils (%) (Auto) 0.3, Basophils (%) (Auto) 0.0 , Neutrophils # (Auto) 7.5, Lymphocytes # (Auto) 1.7, Monocytes # (Auto) 0.7, Eosinophils # (Auto) 0.0, Basophils # (Auto) 0.0, Large Unclassified Cells % 1.4 , Large Unclassified Cells # 0.1, Prothrombin Time 18.5H, Prothromb Time International Ratio 1.53, Anion Gap 5L, Glomerular Filtration Rate 51.1, Blood Urea Nitrogen 26H, Creatinine 1.08H, Sodium Level 140, Potassium Level 4.0, Chloride Level 107, Carbon Dioxide Level 28, Calcium Level 8.6L, Aspartate Amino Transf (AST/SGOT) 10L, Alanine Aminotransferase (ALT/SGPT) 12, Alkaline Phosphatase 71, Total Bilirubin 0.3, Total Protein 6.8, Albumin 2.4L, Albumin/ Globulin Ratio 0.55L Current Medications Current Medications Current Medications Acetaminophen (Tylenol Tab) 650 mg Q6HP PRN PO PAIN / FEVER; Start 02/22/17 at 16:30; Stop 03/24/17 at 16:29 Al Hydrox/Mg Hydrox/Simethicone (Mylanta) 30 ml Q4HP PRN PO DYSPEPSIA; Start at 16:15; Stop 03/24/17 at 16:14 Alprazolam (Xanax) 0.25 mg BIDP PRN PO ANXiety/Aggitation; Start 02/22/17 at 16: 30; Stop 03/01/17 at 12:00 Amlodipine Besylate (Norvasc) 10 mg DAILY PO Last administered on 02/23/17 09: 10; Start 02/23/17 at 09:00; Stop 03/25/17 at 08:59 Buspirone HCl (Buspar) 15 mg BID PO Last administered on 02/23/17 09:10; Start 02/22/17 at 21:00; Stop 03/24/17 at 20:59 Magnesium Hydroxide (Milk Of Magnesia) 30 ml DAILYPRN PRN PO CONSTIPATION; Start 02/22/17 at 16:15; Stop 03/24/17 at 16:14 Multivitamins (Theragram-M) 1 tab DAILY PO Last administered on 02/23/17 09:10 ; Start 02/23/17 at 09:00; Stop 03/25/17 at 08:59 Nystatin (Mycostatin) APPLY TO RASH BIDP PRN TOP Skin rash; Start 02/22/17 at 16 :30; Stop 03/24/17 at 16:29 Ondansetron HCl (Zofran) 4 mg Q4HP PRN PO NAUSEA OR VOMITING; Start 02/22/17 at 16:45; Stop 03/24/17 at 16:44 Oxycodone HCl (Roxicodone, Oxyir) 5 mg Q6HP PRN PO P1-7 (Pain Scale 1-7) Last administered on 02/23/17 07:52; Start 02/22/17 at 16:30; Stop 03/01/17 at 12:00 Oxycodone HCl (Roxicodone, Oxyir) 10 mg Q6HP PRN PO SEVERE PAIN (PS 8-10); Start 02/22/17 at 16:30; Stop 03/01/17 at 12:00 Pantoprazole Sodium (Protonix) 40 mg DAILY PO Last administered on 02/23/17 09: 10; Start 02/23/17 at 09:00; Stop 03/25/17 at 08:59 Senna (Senokot) 1 tab QHS PO Last administered on 02/22/17 20:23; Start at 21:00; Stop 03/24/17 at 20:59 Simvastatin (Zocor) 40 mg DAILY PO Last administered on 02/23/17 09:10; Start 02/23/17 at 09:00; Stop 03/25/17 at 08:59 Sodium Biphosphate/ Sodium Phosphate (Fleet Enema) 1 ea DAILYPRN PRN [place] CONSTIPATION; Start 02/22/17 at 16:15; Stop 03/24/17 at 16:14 Warfarin Sodium (Coumadin) 5 mg 1T@17 PO Last administered on 02/22/17 17:21; Start 02/22/17 at 17:00; Stop 02/22/17 at 17:01; Status DC HOPE STOCK MD Feb 23, 2017 10:53
[2017-02-23 14:00] VITALS: BP 138/62
--- NOTE | 2017-02-23 14:14 | IPNPDOC ---
Subjective Date Seen The patient was seen on 02/23/17. Subjective Chief Complaint/HPI The patient is a 86-year-old female admitted with a reason for visit of Left Tka , Date Of Onset 02/21/2017. Events since last encounter Pt OOB to chair eating lunch. States pain is controlled, no concerns. ENT: Denies: Head Aches, Dysphagia Pulmonary: Denies: Dyspnea, Cough Cardiovascular: Denies: Chest Pain, Palpitations, Orthopnea, Paroxysmal Noc. Dyspnea, Lt Headedness Gastrointestinal: Denies: Nausea, Vomiting, Abdominal Pain, Diarrhea, Constipation Genitourinary: Denies: Dysuria, Frequency, Incontinence, Retention Objective Physical Examination General Exam: Positive: Alert Eye Exam: Positive: PERRLA ENT Exam: Positive: Atraumatic Neck Exam: Positive: Supple Chest Exam: Positive: Clear to auscultation, Normal air movement Heart Exam: Positive: Rate Normal, Regular Rhythm, Normal S1, Normal S2, Negative: Murmurs, Rubs Abdomen Exam: Positive: Normal bowel sounds Extremity Exam: Positive: Normal pulses, Negative: Edema Skin Exam: Positive: Nl turgor and temperature Assessment /Plan Problems (1) Status post total left knee replacement Status: Acute Problem Text: * Mgmt as per ARU * pain control/bowel care as per ARU. * Coumadin as per Orthopedics. * Atalectasis CXR 02/22- I/S. Encourage OOB. (2) HTN (hypertension) Problem Text: * Norvasc. * BP noted 158/70. * Add back Avapro 75mg as per home med rec with hold parameter * BMP in AM * Monitor. (3) CKD (chronic kidney disease), stage III Problem Text: * BMP in Am * Monitor, at baseline (4) History of DVT (deep vein thrombosis) Problem Text: * Coumadin as per Orthopedics. (5) HLD (hyperlipidemia) Problem Text: * statin (6) Anemia Problem Text: * post op anemia. * Monitor Hgb. Check Fe studies/B12/folate. * Stool OB. Plan/VTE VTE Prophylaxis Ordered?: Yes (Coumadin as per Orthopedics. ) VS, I&O, 24H, Fishbone Vital Signs/I&O Vital Signs Date Time Temp Pulse Resp B/P (MAP) Pulse Ox O2 Delivery O2 Flow Rate FiO2 02/23/17 09:10 75 158/70 02/23/17 08:22 18 Room Air 02/23/17 04:45 97.6 96 I&O- Last 24 Hours up to 6 AM 02/23/17 06:00 Intake Total 680 ml Output Total 550 ml Balance 130 ml Laboratory Data 24H LABS Laboratory Tests 2 02/23/17 00:55: Urine Appearance HAZY, Urine Color YELLOW, Urine pH 5.0, Urine Specific [place] 1.025, Urine Protein NEGATIVE, Urine Glucose (UA) NEGATIVE, Urine Ketones NEGATIVE, Urine Urobilinogen 0.2, Urine Bilirubin NEGATIVE, Urine Leukocyte Esterase TRACEH, Urine Blood NEGATIVE, Urine Nitrite NEGATIVE, Urine WBC (Auto) 12H, Urine RBC (Auto) 6H, Urine Hyaline Casts (Auto) 0, Urine Bacteria (Auto) NEGATIVE, Urine Squamous Epithelial Cells 5, Urine Mucus (Auto) SMALL, Urine Sperm (Auto) 02/23/17 07:30: White Blood Count 9.9, Red Blood Count 3.16L, Hemoglobin 8.4L, Hematocrit 27.1L , Mean Corpuscular Volume 85.7, Mean Corpuscular Hemoglobin 26.5L, Mean Corpuscular Hemoglobin Concent 30.9L, Red Cell Distribution Width 14.1, Platelet Count 253, Neutrophils (%) (Auto) 75.5H, Lymphocytes (%) (Auto) 16.2L, Monocytes (%) (Auto) 6.6H, Eosinophils (%) (Auto) 0.3, Basophils (%) (Auto) 0.0 , Neutrophils # (Auto) 7.5, Lymphocytes # (Auto) 1.7, Monocytes # (Auto) 0.7, Eosinophils # (Auto) 0.0, Basophils # (Auto) 0.0, Large Unclassified Cells % 1.4 , Large Unclassified Cells # 0.1, Prothrombin Time 18.5H, Prothromb Time International Ratio 1.53, Anion Gap 5L, Glomerular Filtration Rate 51.1, Blood Urea Nitrogen 26H, Creatinine 1.08H, Sodium Level 140, Potassium Level 4.0, Chloride Level 107, Carbon Dioxide Level 28, Calcium Level 8.6L, Aspartate Amino Transf (AST/SGOT) 10L, Alanine Aminotransferase (ALT/SGPT) 12, Alkaline Phosphatase 71, Total Bilirubin 0.3, Total Protein 6.8, Albumin 2.4L, Albumin/ Globulin Ratio 0.55L CBC/BMP Laboratory Tests 02/23/17 07:30 Red Blood Count 3.16 L, Mean Corpuscular Volume 85.7, Mean Corpuscular Hemoglobin 26.5 L, Mean Corpuscular Hemoglobin Concent 30.9 L, Red Cell Distribution Width 14.1, Neutrophils (%) (Auto) 75.5 H, Lymphocytes (%) (Auto) 16.2 L, Monocytes (%) (Auto) 6.6 H, Eosinophils (%) (Auto) 0.3, Basophils (%) ( Auto) 0.0, Neutrophils # (Auto) 7.5, Lymphocytes # (Auto) 1.7, Monocytes # (Auto ) 0.7, Eosinophils # (Auto) 0.0, Basophils # (Auto) 0.0, Calcium Level 8.6 L, Aspartate Amino Transf (AST/SGOT) 10 L, Alanine Aminotransferase (ALT/SGPT) 12, Alkaline Phosphatase 71, Total Bilirubin 0.3, Total Protein 6.8, Albumin 2.4 L Terri Salazar Feb 23, 2017 14:13
[2017-02-23] MEDS ORDERED: WARFARIN SOD 3 MG TAB PO ONE (17:00)
[2017-02-23 19:52] VITALS: BP 126/64
[2017-02-23] MEDS: SENNA 8.6 MG TAB (SENOKOT) PO SCH (20:35)
[2017-02-23] MEDS: IRBESARTAN 75MG TABLET PO SCH (20:35)
[2017-02-24] MEDS: oxyCODONE 5MG TAB PO PRN ×2 (05:57→20:16)
[2017-02-24 06:00] VITALS: BP 125/60
[2017-02-24 08:16] LABS: MEAN CORPUSCULAR HEMOGLOBIN 26.9 pg (27.0-33.0); MEAN CORPUSCULAR HGB CONC 30.8 g/dl (32.0-36.5); MEAN CORPUSCULAR VOLUME 87.2 fl (80.0-96.0); RED CELL DISTRIBUTION WIDTH 14.2 % (11.5-14.5); WHITE BLOOD COUNT 8.8 K/mm3 (4.0-10.0)
[2017-02-24 08:23] LABS: INR 1.61
[2017-02-24 09:47] LABS: CREATININE FOR GFR 1.22 MG/DL (0.55-1.02); GLOMERULAR FILTRATION RATE 44.4 (>32); PERCENT SATURATION 5.6 % (13.2-37.4); POTASSIUM SERUM 3.8 MEQ/L (3.5-5.1)
[2017-02-24] MEDS: MOM 30ML SUSPENSION UDC PO PRN (10:03)
[2017-02-24] MEDS: busPIRone 5 MG TAB PO SCH ×2 (10:03→20:15)
[2017-02-24] MEDS: SIMVASTATIN 40 MG TAB PO SCH (10:03)
[2017-02-24] MEDS: amLODIPine 10 MG TAB PO SCH (10:03)
[2017-02-24] MEDS: MULTIVITAMINS/MINERALS THERAP 1 TAB PO SCH (10:03)
[2017-02-24] MEDS: PANTOPRAZOLE 40MG TAB (PROTONIX) PO SCH (10:03)
--- NOTE | 2017-02-24 11:08 | IPNPDOC ---
Subjective Date Seen The patient was seen on 02/24/17. Subjective Chief Complaint/HPI The patient is a 86-year-old female admitted with a reason for visit of Left Tka , Date Of Onset 02/21/2017. Events since last encounter Pt OOB to chair. States she took a shower this AM and is feeling well. No complaints. Objective Physical Examination General Exam: Positive: Alert Eye Exam: Positive: PERRLA ENT Exam: Positive: Atraumatic Neck Exam: Positive: Supple Chest Exam: Positive: Clear to auscultation, Normal air movement Heart Exam: Positive: Rate Normal, Regular Rhythm, Normal S1, Normal S2 Abdomen Exam: Positive: Normal bowel sounds Extremity Exam: Positive: Normal pulses Skin Exam: Positive: Nl turgor and temperature Assessment /Plan Problems (1) Status post total left knee replacement Status: Acute Problem Text: * Mgmt as per ARU * pain control/bowel care as per ARU. * Coumadin as per Orthopedics. * Atalectasis CXR 02/22- I/S. Encourage OOB. (2) HTN (hypertension) Problem Text: * Norvasc. * BP noted 158/70. * Added back Avapro 75mg as per home med rec with hold parameter * BMP in AM * Monitor. (3) CKD (chronic kidney disease), stage III Problem Text: * BMP * Baseline appears to be 1.1-1.3. * Monitor, at baseline (4) History of DVT (deep vein thrombosis) Problem Text: * Coumadin as per Orthopedics. (5) HLD (hyperlipidemia) Problem Text: * statin (6) Anemia Problem Text: * post op anemia, Hgb 8.7 trend upward. * Monitor Hgb. Check Fe studies/B12/folate-pending. * Stool OB- pending. Plan/VTE VTE Prophylaxis Ordered?: Yes VS, I&O, 24H, Fishbone Vital Signs/I&O Vital Signs Date Time Temp Pulse Resp B/P (MAP) Pulse Ox O2 Delivery O2 Flow Rate FiO2 02/24/17 10:03 89 125/60 02/24/17 08:00 Room Air 02/24/17 06:27 16 02/24/17 06:00 99.6 95 I&O- Last 24 Hours up to 6 AM 02/24/17 06:00 Intake Total 1440 ml Output Total 400 ml Balance 1040 ml Laboratory Data 24H LABS Laboratory Tests 2 02/24/17 07:40: Prothrombin Time 19.2H, Prothromb Time International Ratio 1.61, Anion Gap 6L, Glomerular Filtration Rate 44.4, Blood Urea Nitrogen 28H, Creatinine 1.22H, Sodium Level 139, Potassium Level 3.8, Chloride Level 105, Carbon Dioxide Level 28, Calcium Level 9.0, Iron Level 18L, Total Iron Binding Capacity 322, Transferrin % Saturation 5.6L, Ferritin 20 CBC/BMP Laboratory Tests 02/24/17 07:40 Red Blood Count 3.25 L, Mean Corpuscular Volume 87.2, Mean Corpuscular Hemoglobin 26.9 L, Mean Corpuscular Hemoglobin Concent 30.8 L, Red Cell Distribution Width 14.2, Calcium Level 9.0 Terri Salazar Feb 24, 2017 11:08
--- NOTE | 2017-02-24 13:21 | IPNPDOC ---
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 Patient with atelectasis on x-ray on 02/22/17. She had very low-grade fever last night Tmax 99.6F. No complaints except for some knee pain which is tolerable and LLE weakness. Patient tolerated CPM last night. She wishes to know her Left Knee AROM/PROM to tell her son, who is a Physical Therapist. ALLERGIES: See Below MEDICATIONS: Reviewed, see below. OBJECTIVE: VITAL SIGNS: Please see below. PHYSICAL EXAMINATION: GENERAL: Well-nourished well-developed elderly white female who is alert and oriented 4. Patient has mildly anxious but less than when examined yesterday. HEENT: Normocephalic/atraumatic. CARDIOVASCULAR: Regular rate and rhythm with normal S1 and S2. 2/4 bilateral radial pulses. LUNGS: All weaver clear to auscultation. ABDOMEN: Bowel sounds present in all quadrants. NEUROLOGICAL: Sensorimotor exam grossly intact. SKIN: Left knee incision under dressing. LABORATORY DATA: Reviewed. Please see below. MICROBIOLOGY: Please see below. IMAGING: No new studies since preadmission to the edition. DVT prophylaxis ordered?: Patient continues on Coumadin with SENG hose. INR today is 1.53 and orthopedics as ordered 6 mg of Coumadin for tonight. ASSESSMENT AND PLAN: 1. Rehabilitation left total knee arthroplasty: Patient starting therapy with physical & occupational therapies. Pain management seems to be appropriate. 2. Atelectasis: We will encourage incentive spirometry to try and keep lungs open. 3. Postop anemia: Patient with a moderate anemia hemoglobin 8.8 and hematocrit 28.4% which are slightly improved. We will continue to monitor this. 4. Hypoalbuminemia: Patient was at 2.4 albumin needs to focus on dietary intake. TIME SPENT: Chart Review, examination and documentation requires greater than 25 minutes. Allergies Coded Allergies: Penicillins (Verified Allergy, Intermediate, 12/18/12) SWELLING AT INJECTION SITE Penicillins Cross Reactors (Verified Allergy, Intermediate, 12/18/12) SWELLING AT INJECTION SITE Codeine (Verified Adverse Reaction, Intermediate, NAUSEA, 04/06/14) Celecoxib (Unverified Adverse Reaction, Unknown, renal failure, 02/08/17) Vital Signs Vital Signs Date Time Temp Pulse Resp B/P (MAP) Pulse Ox O2 Delivery O2 Flow Rate FiO2 02/24/17 10:03 89 125/60 02/24/17 08:00 Room Air 02/24/17 06:27 16 02/24/17 06:00 99.6 95 Laboratory Data CBC/BMP Laboratory Tests 02/24/17 07:40 Red Blood Count 3.25 L, Mean Corpuscular Volume 87.2, Mean Corpuscular Hemoglobin 26.9 L, Mean Corpuscular Hemoglobin Concent 30.8 L, Red Cell Distribution Width 14.2, Calcium Level 9.0 Labs 24H Laboratory Tests 2 02/24/17 07:40: Prothrombin Time 19.2H, Prothromb Time International Ratio 1.61, Anion Gap 6L, Glomerular Filtration Rate 44.4, Blood Urea Nitrogen 28H, Creatinine 1.22H, Sodium Level 139, Potassium Level 3.8, Chloride Level 105, Carbon Dioxide Level 28, Calcium Level 9.0, Iron Level 18L, Total Iron Binding Capacity 322, Transferrin % Saturation 5.6L, Ferritin 20 Current Medications Current Medications Current Medications Acetaminophen (Tylenol Tab) 650 mg Q6HP PRN PO PAIN / FEVER; Start 02/22/17 at 16:30; Stop 03/24/17 at 16:29 Al Hydrox/Mg Hydrox/Simethicone (Mylanta) 30 ml Q4HP PRN PO DYSPEPSIA; Start at 16:15; Stop 03/24/17 at 16:14 Alprazolam (Xanax) 0.25 mg BIDP PRN PO ANXiety/Aggitation; Start 02/22/17 at 16: 30; Stop 03/01/17 at 12:00 Amlodipine Besylate (Norvasc) 10 mg DAILY PO Last administered on 02/24/17 10: 03; Start 02/23/17 at 09:00; Stop 03/25/17 at 08:59 Buspirone HCl (Buspar) 15 mg BID PO Last administered on 02/24/17 10:03; Start 02/22/17 at 21:00; Stop 03/24/17 at 20:59 Irbesartan (Avapro) 75 mg QHS PO Last administered on 02/23/17 20:35; Start 02/23/17 at 21:00; Stop 03/25/17 at 20:59 Magnesium Hydroxide (Milk Of Magnesia) 30 ml DAILYPRN PRN PO CONSTIPATION Last administered on 02/24/17 10:03; Start 02/22/17 at 16:15; Stop 03/24/17 at 16:14 Multivitamins (Theragram-M) 1 tab DAILY PO Last administered on 02/24/17 10:03 ; Start 02/23/17 at 09:00; Stop 03/25/17 at 08:59 Nystatin (Mycostatin) APPLY TO RASH BIDP PRN TOP Skin rash; Start 02/22/17 at 16 :30; Stop 03/24/17 at 16:29 Ondansetron HCl (Zofran) 4 mg Q4HP PRN PO NAUSEA OR VOMITING; Start 02/22/17 at 16:45; Stop 03/24/17 at 16:44 Oxycodone HCl (Roxicodone, Oxyir) 5 mg Q6HP PRN PO P1-7 (Pain Scale 1-7) Last administered on 02/24/17 05:57; Start 02/22/17 at 16:30; Stop 03/01/17 at 12:00 Oxycodone HCl (Roxicodone, Oxyir) 10 mg Q6HP PRN PO SEVERE PAIN (PS 8-10); Start 02/22/17 at 16:30; Stop 03/01/17 at 12:00 Pantoprazole Sodium (Protonix) 40 mg DAILY PO Last administered on 02/24/17 10: 03; Start 02/23/17 at 09:00; Stop 03/25/17 at 08:59 Senna (Senokot) 1 tab QHS PO Last administered on 02/23/17 20:35; Start at 21:00; Stop 03/24/17 at 20:59 Simvastatin (Zocor) 40 mg DAILY PO Last administered on 02/24/17 10:03; Start 02/23/17 at 09:00; Stop 03/25/17 at 08:59 Sodium Biphosphate/ Sodium Phosphate (Fleet Enema) 1 ea DAILYPRN PRN [place] CONSTIPATION; Start 02/22/17 at 16:15; Stop 03/24/17 at 16:14 Warfarin Sodium (Coumadin) 5 mg 1T@17 PO Last administered on 02/22/17t 17:21; Start 02/22/17 at 17:00; Stop 02/22/17 at 17:01; Status DC HOPE STOCK MD Feb 24, 2017 13:21
[2017-02-24 14:00] VITALS: BP 142/68
[2017-02-24 14:43] LABS: FOLATE > 24.0 NG/ML (>5.4); VITAMIN B12 LEVEL 493 PG/ML (247-911)
[2017-02-24] MEDS ORDERED: WARFARIN SOD 3 MG TAB PO ONE (17:00)
[2017-02-24 20:00] VITALS: BP 136/60
[2017-02-24] MEDS: IRBESARTAN 75MG TABLET PO SCH (20:15)
[2017-02-24] MEDS: SENNA 8.6 MG TAB (SENOKOT) PO SCH (20:15)
[2017-02-25] MEDS: oxyCODONE 5MG TAB PO PRN ×2 (02:18→20:33)
[2017-02-25 06:00] VITALS: BP 142/64
[2017-02-25 07:00] LABS: MEAN CORPUSCULAR HEMOGLOBIN 26.7 pg (27.0-33.0); MEAN CORPUSCULAR VOLUME 86.1 fl (80.0-96.0); RED CELL DISTRIBUTION WIDTH 14.2 % (11.5-14.5); WHITE BLOOD COUNT 9.5 K/mm3 (4.0-10.0)
[2017-02-25 07:17] LABS: INR 1.8
[2017-02-25] MEDS: PANTOPRAZOLE 40MG TAB (PROTONIX) PO SCH (08:26)
[2017-02-25] MEDS: amLODIPine 10 MG TAB PO SCH (08:26)
[2017-02-25] MEDS: MULTIVITAMINS/MINERALS THERAP 1 TAB PO SCH (08:26)
[2017-02-25] MEDS: busPIRone 5 MG TAB PO SCH ×2 (08:27→20:32)
[2017-02-25] MEDS: SIMVASTATIN 40 MG TAB PO SCH (08:27)
[2017-02-25 14:00] VITALS: BP 145/67
[2017-02-25] MEDS ORDERED: WARFARIN SOD 5 MG TAB PO ONE (17:00)
[2017-02-25 20:00] VITALS: BP 122/50
[2017-02-25] MEDS: SENNA 8.6 MG TAB (SENOKOT) PO SCH (20:32)
[2017-02-25] MEDS: IRBESARTAN 75MG TABLET PO SCH (20:33)
[2017-02-25] MEDS: MOM 30ML SUSPENSION UDC PO PRN (20:37)
[2017-02-26] MEDS: oxyCODONE 5MG TAB PO PRN ×2 (04:56→16:26)
[2017-02-26 06:00] VITALS: BP 121/57
[2017-02-26 07:04] LABS: MEAN CORPUSCULAR HEMOGLOBIN 27.1 pg (27.0-33.0); MEAN CORPUSCULAR HGB CONC 31.7 g/dl (32.0-36.5); MEAN CORPUSCULAR VOLUME 85.7 fl (80.0-96.0); RED CELL DISTRIBUTION WIDTH 14.1 % (11.5-14.5); WHITE BLOOD COUNT 7.5 K/mm3 (4.0-10.0)
[2017-02-26 07:22] LABS: INR 1.88
[2017-02-26] MEDS: busPIRone 5 MG TAB PO SCH ×2 (08:43→20:50)
[2017-02-26] MEDS: amLODIPine 10 MG TAB PO SCH (08:43)
[2017-02-26] MEDS: MOM 30ML SUSPENSION UDC PO PRN (08:43)
[2017-02-26] MEDS: SIMVASTATIN 40 MG TAB PO SCH (08:43)
[2017-02-26] MEDS: MULTIVITAMINS/MINERALS THERAP 1 TAB PO SCH (08:43)
[2017-02-26] MEDS: PANTOPRAZOLE 40MG TAB (PROTONIX) PO SCH (08:43)
[2017-02-26 14:00] VITALS: BP 140/56
[2017-02-26] MEDS ORDERED: WARFARIN SOD 5 MG TAB PO ONE (17:00)
[2017-02-26 20:00] VITALS: BP 134/66
[2017-02-26] MEDS: IRBESARTAN 75MG TABLET PO SCH (20:49)
[2017-02-26] MEDS: SENNA 8.6 MG TAB (SENOKOT) PO SCH (20:50)
[2017-02-27] MEDS: ACETAMINOPHEN TAB 650MG DOSE (2X325MG) PO PRN (02:47)
[2017-02-27 06:00] VITALS: BP 131/63
[2017-02-27 06:46] LABS: MEAN CORPUSCULAR HEMOGLOBIN 26.8 pg (27.0-33.0); MEAN CORPUSCULAR HGB CONC 30.7 g/dl (32.0-36.5); MEAN CORPUSCULAR VOLUME 87.1 fl (80.0-96.0); RED CELL DISTRIBUTION WIDTH 14.1 % (11.5-14.5); WHITE BLOOD COUNT 9.1 K/mm3 (4.0-10.0)
[2017-02-27 06:54] LABS: INR 2.1
[2017-02-27 09:12] LABS: CALCIUM LEVEL 8.6 MG/DL (8.8-10.2); CREATININE FOR GFR 1.09 MG/DL (0.55-1.02); GLOMERULAR FILTRATION RATE 50.5 (>32); POTASSIUM SERUM 4.6 MEQ/L (3.5-5.1)
[2017-02-27] MEDS: amLODIPine 10 MG TAB PO SCH (09:13)
[2017-02-27] MEDS: SIMVASTATIN 40 MG TAB PO SCH (09:13)
[2017-02-27] MEDS: PANTOPRAZOLE 40MG TAB (PROTONIX) PO SCH (09:14)
[2017-02-27] MEDS: busPIRone 5 MG TAB PO SCH ×2 (09:14→21:29)
[2017-02-27] MEDS: MULTIVITAMINS/MINERALS THERAP 1 TAB PO SCH (09:14)
--- NOTE | 2017-02-27 11:51 | IPNPDOC ---
Subjective Date Seen The patient was seen on 02/27/17. Subjective Chief Complaint/HPI The patient is a 86-year-old female admitted with a reason for visit of Left Tka , Date Of Onset 02/21/2017. Events since last encounter Pt with no complaints. Denies any bleeding. ENT: Denies: Head Aches, Dysphagia Pulmonary: Denies: Dyspnea, Cough Cardiovascular: Denies: Chest Pain, Palpitations, Orthopnea, Paroxysmal Noc. Dyspnea, Lt Headedness Gastrointestinal: Denies: Nausea, Vomiting, Abdominal Pain, Diarrhea, Constipation Genitourinary: Denies: Dysuria, Frequency, Incontinence, Retention Objective Physical Examination General Exam: Positive: Alert Eye Exam: Positive: PERRLA ENT Exam: Positive: Atraumatic Neck Exam: Positive: Supple Chest Exam: Positive: Clear to auscultation, Normal air movement Heart Exam: Positive: Rate Normal, Regular Rhythm, Normal S1, Normal S2 Abdomen Exam: Positive: Normal bowel sounds Extremity Exam: Positive: Normal pulses Skin Exam: Positive: Nl turgor and temperature Assessment /Plan Problems (1) Status post total left knee replacement Status: Acute Problem Text: * Mgmt as per ARU * pain control/bowel care as per ARU. * Coumadin as per Orthopedics. * Atalectasis CXR 02/22- I/S. Encourage OOB. (2) HTN (hypertension) Problem Text: * Norvasc. * BP noted 158/70. * Added back Avapro 75mg as per home med rec with hold parameter * Monitor. (3) CKD (chronic kidney disease), stage III Problem Text: * BMP * Baseline appears to be 1.1-1.3. * Monitor, at baseline (4) History of DVT (deep vein thrombosis) Problem Text: * Coumadin as per Orthopedics. (5) HLD (hyperlipidemia) Problem Text: * statin (6) Anemia Problem Text: * post op anemia, Hgb 7.8. * Monitor Hgb. * Fe studies with low Ferritin, Fe. Supplement added BID. * B12/folate-WNL. * Stool OB- neg. * Transfusion Consent placed on chart * Discussed with Dr Diaz, continue to monitor. Plan/VTE VTE Prophylaxis Ordered?: Yes VS, I&O, 24H, Fishbone Vital Signs/I&O Vital Signs Date Time Temp Pulse Resp B/P (MAP) Pulse Ox O2 Delivery O2 Flow Rate FiO2 02/27/17 09:13 77 131/63 02/27/17 06:00 99.0 20 95 Room Air I&O- Last 24 Hours up to 6 AM 02/27/17 06:00 Intake Total 1440 ml Output Total 1000 ml Balance 440 ml Laboratory Data 24H LABS Laboratory Tests 2 02/27/17 06:16: Anion Gap 6L, Glomerular Filtration Rate 50.5, Blood Urea Nitrogen 26H, Creatinine 1.09H, Sodium Level 142, Potassium Level 4.6#, Chloride Level 107, Carbon Dioxide Level 29, Calcium Level 8.6L 02/27/17 06:18: Prothrombin Time 23.6H, Prothromb Time International Ratio 2.10 CBC/BMP Laboratory Tests 02/27/17 06:16 Calcium Level 8.6 L 02/27/17 06:18 Red Blood Count 2.92 L, Mean Corpuscular Volume 87.1, Mean Corpuscular Hemoglobin 26.8 L, Mean Corpuscular Hemoglobin Concent 30.7 L, Red Cell Distribution Width 14.1 Microbiology Microbiology 02/26/17 Stool Occult Blood (NATALY) - Final, Complete Terri Salazar Feb 27, 2017 11:51
[2017-02-27] MEDS: FERROUS SULFATE 325MG TAB PO SCH ×2 (12:02→21:29)
--- NOTE | 2017-02-27 12:48 | IPNPDOC ---
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 No complaints except for some knee aching which is tolerable and LLE weakness. Patient tolerated CPM last night. No other complaints this morning. ALLERGIES: See Below MEDICATIONS: Reviewed, see below. OBJECTIVE: VITAL SIGNS: Please see below. PHYSICAL EXAMINATION: GENERAL: Well-nourished well-developed elderly white female who is alert and oriented 4. Patient has mildly anxious but less than when examined yesterday. HEENT: Normocephalic/atraumatic. CARDIOVASCULAR: Regular rate and rhythm with normal S1 and S2. 2/4 bilateral radial pulses. LUNGS: All weaver clear to auscultation. ABDOMEN: Bowel sounds present in all quadrants. NEUROLOGICAL: Sensorimotor exam grossly intact. SKIN: Left knee incision under dressing. Leg coloration is good. No increased heat, erythema or drainage noted in the area. LABORATORY DATA: Reviewed. Please see below. MICROBIOLOGY: Please see below. IMAGING: No new studies since preadmission to the edition. DVT prophylaxis ordered?: Patient continues on Coumadin with SENG mills. INR today is 2.10 and orthopedics as ordered 2.5 mg of Coumadin for tonight. ASSESSMENT AND PLAN: 1. Rehabilitation left total knee arthroplasty: Patient continuing therapy with physical & occupational therapies. Pain management seems to be appropriate. We will review status at Team Rounds this afternoon. Patient progressing well in PT/OT and is anticipated to reach D/C goals by and need a Front Wheeled Walker. 2. Atelectasis: We will encourage incentive spirometry to try and keep lungs open. Today's temp. was 99.0F. 3. Postop anemia: Patient with a moderate anemia hemoglobin 7.8 and hematocrit 25.5% which worse. We will continue to monitor this including recheck tomorrow. 4. Hypoalbuminemia: Patient was at 2.4 albumin Monday and needs to focus on dietary intake. We will recheck tomorrow with CMP. TIME SPENT: Chart Review, examination and documentation requires greater than 35 minutes. Allergies Coded Allergies: Penicillins (Verified Allergy, Intermediate, 12/18/12) SWELLING AT INJECTION SITE Penicillins Cross Reactors (Verified Allergy, Intermediate, 12/18/12) SWELLING AT INJECTION SITE Codeine (Verified Adverse Reaction, Intermediate, NAUSEA, 04/06/14) Celecoxib (Unverified Adverse Reaction, Unknown, renal failure, 02/08/17) Vital Signs Vital Signs Date Time Temp Pulse Resp B/P (MAP) Pulse Ox O2 Delivery O2 Flow Rate FiO2 02/27/17 09:13 77 131/63 02/27/17 06:00 99.0 20 95 Room Air Laboratory Data CBC/BMP Laboratory Tests 02/27/17 06:16 Calcium Level 8.6 L 02/27/17 06:18 Red Blood Count 2.92 L, Mean Corpuscular Volume 87.1, Mean Corpuscular Hemoglobin 26.8 L, Mean Corpuscular Hemoglobin Concent 30.7 L, Red Cell Distribution Width 14.1 Labs 24H Laboratory Tests 2 02/27/17 06:16: Anion Gap 6L, Glomerular Filtration Rate 50.5, Blood Urea Nitrogen 26H, Creatinine 1.09H, Sodium Level 142, Potassium Level 4.6#, Chloride Level 107, Carbon Dioxide Level 29, Calcium Level 8.6L 02/27/17 06:18: Prothrombin Time 23.6H, Prothromb Time International Ratio 2.10 Microbiology Microbiology 02/26/17 Stool Occult Blood (NATALY) - Final, Complete Current Medications Current Medications Current Medications Acetaminophen (Tylenol Tab) 650 mg Q6HP PRN PO PAIN / FEVER Last administered on 02/27/17 02:47; Start 02/22/17 at 16:30; Stop 03/24/17 at 16:29 Al Hydrox/Mg Hydrox/Simethicone (Mylanta) 30 ml Q4HP PRN PO DYSPEPSIA; Start at 16:15; Stop 03/24/17 at 16:14 Alprazolam (Xanax) 0.25 mg BIDP PRN PO ANXiety/Aggitation; Start 02/22/17 at 16: 30; Stop 03/01/17 at 12:00 Amlodipine Besylate (Norvasc) 10 mg DAILY PO Last administered on 02/27/17 09: 13; Start 02/23/17 at 09:00; Stop 03/25/17 at 08:59 Buspirone HCl (Buspar) 15 mg BID PO Last administered on 02/27/17 09:14; Start 02/22/17 at 21:00; Stop 03/24/17 at 20:59 Ferrous Sulfate (Ferrous Sulfate) 325 mg BID PO Last administered on 02/27/17 12:02; Start 02/27/17 at 09:00; Stop 03/29/17 at 08:59 Irbesartan (Avapro) 75 mg QHS PO Last administered on 02/26/17 20:49; Start at 21:00; Stop 03/25/17 at 20:59 Magnesium Hydroxide (Milk Of Magnesia) 30 ml DAILYPRN PRN PO CONSTIPATION Last administered on 02/26/17 08:43; Start 02/22/17 at 16:15; Stop 03/24/17 at 16:14 Multivitamins (Theragram-M) 1 tab DAILY PO Last administered on 02/27/17 09:14 ; Start 02/23/17 at 09:00; Stop 03/25/17 at 08:59 Nystatin (Mycostatin) APPLY TO RASH BIDP PRN TOP Skin rash; Start 02/22/17 at 16 :30; Stop 03/24/17 at 16:29 Ondansetron HCl (Zofran) 4 mg Q4HP PRN PO NAUSEA OR VOMITING Last administered on 02/25/17 08:26; Start 02/22/17 at 16:45; Stop 03/24/17 at 16:44 Oxycodone HCl (Roxicodone, Oxyir) 5 mg Q6HP PRN PO P1-7 (Pain Scale 1-7) Last administered on 02/26/17 16:26; Start 02/22/17 at 16:30; Stop 03/01/17 at 12:00 Oxycodone HCl (Roxicodone, Oxyir) 10 mg Q6HP PRN PO SEVERE PAIN (PS 8-10) Last administered on 02/26/17 22:34; Start 02/22/17 at 16:30; Stop 03/01/17 at 12:00 Pantoprazole Sodium (Protonix) 40 mg DAILY PO Last administered on 02/27/17 09 :14; Start 02/23/17 at 09:00; Stop 03/25/17 at 08:59 Senna (Senokot) 1 tab QHS PO Last administered on 02/25/17 20:32; Start at 21:00; Stop 03/24/17 at 20:59 Simvastatin (Zocor) 40 mg DAILY PO Last administered on 02/27/17 09:13; Start 02/23/17 at 09:00; Stop 03/25/17 at 08:59 Sodium Biphosphate/ Sodium Phosphate (Fleet Enema) 1 ea DAILYPRN PRN [place] CONSTIPATION; Start 02/22/17 at 16:15; Stop 03/24/17 at 16:14 Warfarin Sodium (Coumadin) 5 mg 1T@17 PO Last administered on 02/22/17 17:21; Start 02/22/17 at 17:00; Stop 02/22/17 at 17:01; Status DC HOPE STOCK MD Feb 27, 2017 12:48
[2017-02-27 14:00] VITALS: BP 145/67
[2017-02-27] MEDS ORDERED: WARFARIN SOD 2.5 MG TAB PO ONE (17:00)
[2017-02-27 20:30] VITALS: BP 150/72
[2017-02-27] MEDS: IRBESARTAN 75MG TABLET PO SCH (21:28)
[2017-02-27] MEDS: SENNA 8.6 MG TAB (SENOKOT) PO SCH (21:29)
[2017-02-28] MEDS: oxyCODONE 5MG TAB PO PRN (00:38)
[2017-02-28 05:45] VITALS: BP 164/72
[2017-02-28 07:18] LABS: INR 1.96
[2017-02-28 07:29] LABS: MEAN CORPUSCULAR HEMOGLOBIN 26.6 pg (27.0-33.0); MEAN CORPUSCULAR HGB CONC 30.6 g/dl (32.0-36.5); MEAN CORPUSCULAR VOLUME 86.9 fl (80.0-96.0); RED CELL DISTRIBUTION WIDTH 14.1 % (11.5-14.5); WHITE BLOOD COUNT 8.5 K/mm3 (4.0-10.0)
[2017-02-28 07:33] LABS: ALBUMIN 2.4 GM/DL (3.2-5.2); ALBUMIN/GLOBULIN RATIO 0.62 (1.00-1.93); BILIRUBIN,TOTAL 0.6 MG/DL (0.2-1.0); CALCIUM LEVEL 8.7 MG/DL (8.8-10.2); CREATININE FOR GFR 1.02 MG/DL (0.55-1.02); GLOMERULAR FILTRATION RATE 54.6 (>32); POTASSIUM SERUM 4.3 MEQ/L (3.5-5.1); TOTAL PROTEIN 6.3 GM/DL (6.4-8.2)
[2017-02-28] MEDS: MULTIVITAMINS/MINERALS THERAP 1 TAB PO SCH (09:06)
[2017-02-28] MEDS: FERROUS SULFATE 325MG TAB PO SCH ×2 (09:06→20:17)
[2017-02-28] MEDS: PANTOPRAZOLE 40MG TAB (PROTONIX) PO SCH (09:07)
[2017-02-28] MEDS: SIMVASTATIN 40 MG TAB PO SCH (09:07)
[2017-02-28] MEDS: amLODIPine 10 MG TAB PO SCH (09:07)
[2017-02-28] MEDS: busPIRone 5 MG TAB PO SCH ×2 (09:07→20:17)
--- NOTE | 2017-02-28 11:17 | IPNPDOC ---
Subjective Date Seen The patient was seen on 02/28/17. Subjective Chief Complaint/HPI The patient is a 86-year-old female admitted with a reason for visit of Left Tka , Date Of Onset 02/21/2017. Events since last encounter Pt ambulating with PT and states she continues to feel better. She has no complaints at this time. ENT: Denies: Head Aches, Dysphagia Pulmonary: Denies: Dyspnea, Cough Cardiovascular: Denies: Chest Pain, Palpitations, Orthopnea, Paroxysmal Noc. Dyspnea, Lt Headedness Gastrointestinal: Denies: Nausea, Vomiting, Abdominal Pain, Diarrhea, Constipation Genitourinary: Denies: Dysuria, Frequency, Incontinence, Retention Objective Physical Examination General Exam: Positive: Alert Eye Exam: Positive: PERRLA ENT Exam: Positive: Atraumatic Neck Exam: Positive: Supple Chest Exam: Positive: Clear to auscultation, Normal air movement Heart Exam: Positive: Rate Normal, Regular Rhythm, Normal S1, Normal S2 Abdomen Exam: Positive: Normal bowel sounds Extremity Exam: Positive: Normal pulses Skin Exam: Positive: Nl turgor and temperature Assessment /Plan Problems (1) Status post total left knee replacement Status: Acute Problem Text: * Mgmt as per ARU * pain control/bowel care as per ARU. * Coumadin as per Orthopedics. * Atalectasis CXR 02/22- I/S. Encourage OOB. (2) HTN (hypertension) Problem Text: * Norvasc. * BP noted 150s-160s. * Will increase Avapro to 150mg daily with hold paramter * Monitor. (3) CKD (chronic kidney disease), stage III Problem Text: * BMP * Baseline appears to be 1.1-1.3. * Monitor, at baseline (4) History of DVT (deep vein thrombosis) Problem Text: * Coumadin as per Orthopedics. (5) HLD (hyperlipidemia) Problem Text: * statin (6) Anemia Problem Text: * post op anemia, Hgb 7.8 stable. * Monitor Hgb. * Fe studies with low Ferritin, Fe. Supplement added BID. * B12/folate-WNL. * Stool OB- neg. * Transfusion consent on chart * Cont to monitor. Plan/VTE VTE Prophylaxis Ordered?: Yes VS, I&O, 24H, Fishbone Vital Signs/I&O Vital Signs Date Time Temp Pulse Resp B/P (MAP) Pulse Ox O2 Delivery O2 Flow Rate FiO2 02/28/17 09:07 87 164/72 02/28/17 05:45 98.9 20 98 Room Air I&O- Last 24 Hours up to 6 AM 02/28/17 06:00 Intake Total 960 ml Output Total 550 ml Balance 410 ml Laboratory Data 24H LABS Laboratory Tests 2 02/28/17 06:37: Prothrombin Time 22.4H, Prothromb Time International Ratio 1.96, Anion Gap 7L, Glomerular Filtration Rate 54.6, Blood Urea Nitrogen 23H, Creatinine 1.02, Sodium Level 141, Potassium Level 4.3, Chloride Level 106, Carbon Dioxide Level 28, Calcium Level 8.7L, Aspartate Amino Transf (AST/SGOT) 10L, Alanine Aminotransferase (ALT/SGPT) 16, Alkaline Phosphatase 80, Total Bilirubin 0.6, Total Protein 6.3L, Albumin 2.4L, Albumin/Globulin Ratio 0.62L CBC/BMP Laboratory Tests 02/28/17 06:37 Red Blood Count 2.92 L, Mean Corpuscular Volume 86.9, Mean Corpuscular Hemoglobin 26.6 L, Mean Corpuscular Hemoglobin Concent 30.6 L, Red Cell Distribution Width 14.1, Calcium Level 8.7 L, Aspartate Amino Transf (AST/SGOT) 10 L, Alanine Aminotransferase (ALT/SGPT) 16, Alkaline Phosphatase 80, Total Bilirubin 0.6, Total Protein 6.3 L, Albumin 2.4 L Microbiology Microbiology 02/26/17 Stool Occult Blood (NATALY) - Final, Complete Terri Salazar Feb 28, 2017 11:17
[2017-02-28] MEDS: IRBESARTAN 150 MG TAB PO SCH (12:02)
[2017-02-28 14:00] VITALS: BP 138/65
--- NOTE | 2017-02-28 14:25 | IPNPDOC ---
Medical Physics Professor Progress Note DATE OF SERVICE: 02/28/17 DATE OF ADMISSION: Feb 22, 2017 at 16:14 INPATIENT REHABILITATION ADMISSION DAY: #7 SUBJECTIVE: Patient is a 86-year-old white female with left total knee arthroplasty. Patient without complaints today but does express some reservation about being ready by to return home. Reinforcement patient' s progress was made to her by myself and physical/occupational therapies. ALLERGIES: See Below MEDICATIONS: Reviewed, see below. OBJECTIVE: VITAL SIGNS: Please see below. PHYSICAL EXAMINATION: GENERAL: Well-nourished well-developed elderly white female who is alert and well oriented and in very mild musculoskeletal distress around the left knee. HEENT: Normocephalic/atraumatic. CARDIOVASCULAR: Regular rate and rhythm with normal S1-S2. LUNGS: All weaver clear to auscultation. ABDOMEN: Benign with normal bowel sounds in all quadrants. NEUROLOGICAL: Patient alert and oriented 4. Speech is clear coherent and appropriate. Affect is pleasant and cooperative with slight mild anxiousness. Motor exam shows normal functional strength in right lower extremity and bilateral upper extremity with good strength in the left lower extremity. Balance is good. SKIN: Left TKA incision is healing well it appears based on color and temperature and lack of drainage under the dressing. LABORATORY DATA: Reviewed. Please see below. MICROBIOLOGY: Please see below. IMAGING: No new imaging. DVT prophylaxis ordered?: Patient continues on Coumadin INR today is slightly subtherapeutic at 1.96. Evening Coumadin ordered by orthopedics. ASSESSMENT AND PLAN: 1. Rehabilitation of left TKA: Patient doing well in physical and occupational therapy as on face to meet all her discharge goals by . 2. Anemia: This remains stable with H&H 7.8 and 25.4% today. TIME SPENT: Chart Review, examination and documentation requires greater than 15 minutes. Allergies Coded Allergies: Penicillins (Verified Allergy, Intermediate, 12/18/12) SWELLING AT INJECTION SITE Penicillins Cross Reactors (Verified Allergy, Intermediate, 12/18/12) SWELLING AT INJECTION SITE Codeine (Verified Adverse Reaction, Intermediate, NAUSEA, 04/06/14) Celecoxib (Unverified Adverse Reaction, Unknown, renal failure, 02/08/17) Vital Signs Vital Signs Date Time Temp Pulse Resp B/P (MAP) Pulse Ox O2 Delivery O2 Flow Rate FiO2 02/28/17 12:02 164/72 02/28/17 09:07 87 02/28/17 05:45 98.9 20 98 Room Air Laboratory Data CBC/BMP Laboratory Tests 02/28/17 06:37 Red Blood Count 2.92 L, Mean Corpuscular Volume 86.9, Mean Corpuscular Hemoglobin 26.6 L, Mean Corpuscular Hemoglobin Concent 30.6 L, Red Cell Distribution Width 14.1, Calcium Level 8.7 L, Aspartate Amino Transf (AST/SGOT) 10 L, Alanine Aminotransferase (ALT/SGPT) 16, Alkaline Phosphatase 80, Total Bilirubin 0.6, Total Protein 6.3 L, Albumin 2.4 L Labs 24H Laboratory Tests 2 02/28/17 06:37: Prothrombin Time 22.4H, Prothromb Time International Ratio 1.96, Anion Gap 7L, Glomerular Filtration Rate 54.6, Blood Urea Nitrogen 23H, Creatinine 1.02, Sodium Level 141, Potassium Level 4.3, Chloride Level 106, Carbon Dioxide Level 28, Calcium Level 8.7L, Aspartate Amino Transf (AST/SGOT) 10L, Alanine Aminotransferase (ALT/SGPT) 16, Alkaline Phosphatase 80, Total Bilirubin 0.6, Total Protein 6.3L, Albumin 2.4L, Albumin/Globulin Ratio 0.62L Microbiology Microbiology 02/26/17 Stool Occult Blood (NATALY) - Final, Complete Current Medications Current Medications Current Medications Acetaminophen (Tylenol Tab) 650 mg Q6HP PRN PO PAIN / FEVER Last administered on 02/27/17 02:47; Start 02/22/17 at 16:30; Stop 03/24/17 at 16:29 Al Hydrox/Mg Hydrox/Simethicone (Mylanta) 30 ml Q4HP PRN PO DYSPEPSIA; Start at 16:15; Stop 03/24/17 at 16:14 Alprazolam (Xanax) 0.25 mg BIDP PRN PO ANXiety/Aggitation; Start 02/22/17 at 16: 30; Stop 03/01/17 at 12:00 Amlodipine Besylate (Norvasc) 10 mg DAILY PO Last administered on 02/28/17 09: 07; Start 02/23/17 at 09:00; Stop 03/25/17 at 08:59 Buspirone HCl (Buspar) 15 mg BID PO Last administered on 02/28/17 09:07; Start 02/22/17 at 21:00; Stop 03/24/17 at 20:59 Ferrous Sulfate (Ferrous Sulfate) 325 mg BID PO Last administered on 02/28/17 09:06; Start 02/27/17 at 09:00; Stop 03/29/17 at 08:59 Irbesartan (Avapro) 75 mg QHS PO Last administered on 02/27/17 21:28; Start at 21:00; Stop 02/28/17 at 11:25; Status DC Irbesartan (Avapro) 150 mg DAILY PO Last administered on 02/28/17 12:02; Start 02/28/17 at 09:00; Stop 03/30/17 at 08:59 Magnesium Hydroxide (Milk Of Magnesia) 30 ml DAILYPRN PRN PO CONSTIPATION Last administered on 02/26/17 08:43; Start 02/22/17 at 16:15; Stop 03/24/17 at 16:14 Multivitamins (Theragram-M) 1 tab DAILY PO Last administered on 02/28/17 09:06 ; Start 02/23/17 at 09:00; Stop 03/25/17 at 08:59 Nystatin (Mycostatin) APPLY TO RASH BIDP PRN TOP Skin rash; Start 02/22/17 at 16 :30; Stop 03/24/17 at 16:29 Ondansetron HCl (Zofran) 4 mg Q4HP PRN PO NAUSEA OR VOMITING Last administered on 02/25/17 08:26; Start 02/22/17 at 16:45; Stop 03/24/17 at 16:44 Oxycodone HCl (Roxicodone, Oxyir) 5 mg Q6HP PRN PO P1-7 (Pain Scale 1-7) Last administered on 02/28/17 00:38; Start 02/22/17 at 16:30; Stop 03/01/17 at 12:00 Oxycodone HCl (Roxicodone, Oxyir) 10 mg Q6HP PRN PO SEVERE PAIN (PS 8-10) Last administered on 02/26/17 22:34; Start 02/22/17 at 16:30; Stop 03/01/17 at 12:00 Pantoprazole Sodium (Protonix) 40 mg DAILY PO Last administered on 02/28/17 09 :07; Start 02/23/17 at 09:00; Stop 03/25/17 at 08:59 Senna (Senokot) 1 tab QHS PO Last administered on 02/27/17 21:29; Start at 21:00; Stop 03/24/17 at 20:59 Simvastatin (Zocor) 40 mg DAILY PO Last administered on 02/28/17 09:07; Start 02/23/17 at 09:00; Stop 03/25/17 at 08:59 Sodium Biphosphate/ Sodium Phosphate (Fleet Enema) 1 ea DAILYPRN PRN [place] CONSTIPATION; Start 02/22/17 at 16:15; Stop 03/24/17 at 16:14 Warfarin Sodium (Coumadin) 5 mg 1T@17 PO Last administered on 02/22/17 17:21; Start 02/22/17 at 17:00; Stop 02/22/17 at 17:01; Status DC HOPE STOCK MD Feb 28, 2017 14:25
[2017-02-28] MEDS ORDERED: WARFARIN SOD 4 MG TAB PO ONE (17:00)
[2017-02-28 20:00] VITALS: BP 145/67
[2017-02-28] MEDS: SENNA 8.6 MG TAB (SENOKOT) PO SCH (20:17)
[2017-02-28] MEDS: ACETAMINOPHEN TAB 650MG DOSE (2X325MG) PO PRN (22:04)
[2017-03-01 06:00] VITALS: BP 144/65
[2017-03-01 06:52] LABS: MEAN CORPUSCULAR HEMOGLOBIN 26.4 pg (27.0-33.0); MEAN CORPUSCULAR HGB CONC 30.6 g/dl (32.0-36.5); MEAN CORPUSCULAR VOLUME 86.5 fl (80.0-96.0); RED CELL DISTRIBUTION WIDTH 14.4 % (11.5-14.5)
[2017-03-01 06:57] LABS: INR 1.98
[2017-03-01 07:03] LABS: ALBUMIN 2.4 GM/DL (3.2-5.2); ALBUMIN/GLOBULIN RATIO 0.57 (1.00-1.93); BILIRUBIN,TOTAL 0.6 MG/DL (0.2-1.0); CALCIUM LEVEL 8.8 MG/DL (8.8-10.2); CREATININE FOR GFR 1.02 MG/DL (0.55-1.02); GLOMERULAR FILTRATION RATE 54.6 (>32); TOTAL PROTEIN 6.6 GM/DL (6.4-8.2)
[2017-03-01] MEDS: PANTOPRAZOLE 40MG TAB (PROTONIX) PO SCH (08:25)
[2017-03-01] MEDS: FERROUS SULFATE 325MG TAB PO SCH ×2 (08:25→21:08)
[2017-03-01] MEDS: SIMVASTATIN 40 MG TAB PO SCH (08:25)
[2017-03-01] MEDS: amLODIPine 10 MG TAB PO SCH (08:25)
[2017-03-01] MEDS: MULTIVITAMINS/MINERALS THERAP 1 TAB PO SCH (08:25)
[2017-03-01] MEDS: busPIRone 5 MG TAB PO SCH ×2 (08:25→21:08)
[2017-03-01] MEDS: IRBESARTAN 150 MG TAB PO SCH (08:30)
--- NOTE | 2017-03-01 08:58 | IPNPDOC ---
Computator Progress Note DATE OF SERVICE: 03/01/17 DATE OF ADMISSION: Feb 22, 2017 at 16:14 INPATIENT REHABILITATION ADMISSION DAY: #8 SUBJECTIVE: Patient is a 86-year-old white female with left total knee arthroplasty. Patient without complaints today but does not express any more reservation about being ready by to return home. Trial in Apartment today. ALLERGIES: See Below MEDICATIONS: Reviewed, see below. OBJECTIVE: VITAL SIGNS: Please see below. PHYSICAL EXAMINATION: GENERAL: Well-nourished well-developed elderly white female who is alert and well oriented and in very mild musculoskeletal distress around the left knee. HEENT: Normocephalic/atraumatic. CARDIOVASCULAR: Regular rate and rhythm with normal S1-S2. LUNGS: All weaver clear to auscultation. ABDOMEN: Benign with normal bowel sounds in all quadrants. NEUROLOGICAL: Patient alert and oriented 4. Speech is clear coherent and appropriate. Affect is pleasant and cooperative. Motor exam shows normal functional strength in right lower extremity and bilateral upper extremity with good strength in the left lower extremity. Balance is good. SKIN: Left TKA incision is healing well it appears based on color and temperature and lack of drainage under the dressing. LABORATORY DATA: Reviewed. Please see below. MICROBIOLOGY: Please see below. IMAGING: No new imaging. DVT prophylaxis ordered?: Patient continues on Coumadin INR today is slightly subtherapeutic at 1.98. Evening Coumadin ordered by orthopedics. ASSESSMENT AND PLAN: 1. Rehabilitation of left TKA: Patient doing well in physical and occupational therapy as on face to meet all her discharge goals by . Trial in Apartment today. 2. Anemia: This remains stable with H&H 7.8 and 25.5% today. 3. CKD: BUN stable at 23 with normal Creatinine. 4. Hypoalbuminemia: Stable at 2.4. Encourage protien intake. TIME SPENT: Chart Review, examination and documentation requires greater than 25 minutes. Allergies Coded Allergies: Penicillins (Verified Allergy, Intermediate, 12/18/12) SWELLING AT INJECTION SITE Penicillins Cross Reactors (Verified Allergy, Intermediate, 12/18/12) SWELLING AT INJECTION SITE Codeine (Verified Adverse Reaction, Intermediate, NAUSEA, 04/06/14) Celecoxib (Unverified Adverse Reaction, Unknown, renal failure, 02/08/17) Vital Signs Vital Signs Date Time Temp Pulse Resp B/P (MAP) Pulse Ox O2 Delivery O2 Flow Rate FiO2 03/01/17 08:30 144/65 03/01/17 08:25 92 03/01/17 06:00 99.0 18 97 Room Air Laboratory Data CBC/BMP Laboratory Tests 03/01/17 06:17 Red Blood Count 2.95 L, Mean Corpuscular Volume 86.5, Mean Corpuscular Hemoglobin 26.4 L, Mean Corpuscular Hemoglobin Concent 30.6 L, Red Cell Distribution Width 14.4, Calcium Level 8.8, Aspartate Amino Transf (AST/SGOT) 11 L, Alanine Aminotransferase (ALT/SGPT) 14, Alkaline Phosphatase 77, Total Bilirubin 0.6, Total Protein 6.6, Albumin 2.4 L Labs 24H Laboratory Tests 2 03/01/17 06:17: Prothrombin Time 22.6H, Prothromb Time International Ratio 1.98, Anion Gap 5L, Glomerular Filtration Rate 54.6, Blood Urea Nitrogen 23H, Creatinine 1.02, Sodium Level 138, Potassium Level 4.0, Chloride Level 105, Carbon Dioxide Level 28, Calcium Level 8.8, Aspartate Amino Transf (AST/SGOT) 11L, Alanine Aminotransferase (ALT/SGPT) 14, Alkaline Phosphatase 77, Total Bilirubin 0.6, Total Protein 6.6, Albumin 2.4L, Albumin/Globulin Ratio 0.57L Microbiology Microbiology 02/26/17 Stool Occult Blood (NATALY) - Final, Complete Current Medications Current Medications Current Medications Acetaminophen (Tylenol Tab) 650 mg Q6HP PRN PO PAIN / FEVER Last administered on 02/28/17 22:04; Start 02/22/17 at 16:30; Stop 03/24/17 at 16:29 Al Hydrox/Mg Hydrox/Simethicone (Mylanta) 30 ml Q4HP PRN PO DYSPEPSIA; Start at 16:15; Stop 03/24/17 at 16:14 Alprazolam (Xanax) 0.25 mg BIDP PRN PO ANXiety/Aggitation; Start 02/22/17 at 16: 30; Stop 03/04/17 at 12:00 Amlodipine Besylate (Norvasc) 10 mg DAILY PO Last administered on 03/01/17 08: 25; Start 02/23/17 at 09:00; Stop 03/25/17 at 08:59 Buspirone HCl (Buspar) 15 mg BID PO Last administered on 03/01/17 08:25; Start 02/22/17 at 21:00; Stop 03/24/17 at 20:59 Ferrous Sulfate (Ferrous Sulfate) 325 mg BID PO Last administered on 03/01/17 08:25; Start 02/27/17 at 09:00; Stop 03/29/17 at 08:59 Irbesartan (Avapro) 75 mg QHS PO Last administered on 02/27/17 21:28; Start at 21:00; Stop 02/28/17 at 11:25; Status DC Irbesartan (Avapro) 150 mg DAILY PO Last administered on 03/01/17 08:30; Start 02/28/17 at 09:00; Stop 03/30/17 at 08:59 Magnesium Hydroxide (Milk Of Magnesia) 30 ml DAILYPRN PRN PO CONSTIPATION Last administered on 02/26/17 08:43; Start 02/22/17 at 16:15; Stop 03/24/17 at 16:14 Multivitamins (Theragram-M) 1 tab DAILY PO Last administered on 03/01/17 08:25 ; Start 02/23/17 at 09:00; Stop 03/25/17 at 08:59 Nystatin (Mycostatin) APPLY TO RASH BIDP PRN TOP Skin rash; Start 02/22/17 at 16 :30; Stop 03/24/17 at 16:29 Ondansetron HCl (Zofran) 4 mg Q4HP PRN PO NAUSEA OR VOMITING Last administered on 02/25/17 08:26; Start 02/22/17 at 16:45; Stop 03/24/17 at 16:44 Oxycodone HCl (Roxicodone, Oxyir) 5 mg Q6HP PRN PO P1-7 (Pain Scale 1-7) Last administered on 02/28/17 00:38; Start 02/22/17 at 16:30; Stop 03/04/17 at 12:00 Oxycodone HCl (Roxicodone, Oxyir) 10 mg Q6HP PRN PO SEVERE PAIN (PS 8-10) Last administered on 02/26/17 22:34; Start 02/22/17 at 16:30; Stop 03/04/17 at 12:00 Pantoprazole Sodium (Protonix) 40 mg DAILY PO Last administered on 03/01/17 08 :25; Start 02/23/17 at 09:00; Stop 03/25/17 at 08:59 Senna (Senokot) 1 tab QHS PO Last administered on 02/27/17 21:29; Start at 21:00; Stop 03/24/17 at 20:59 Simvastatin (Zocor) 40 mg DAILY PO Last administered on 03/01/17 08:25; Start 02/23/17 at 09:00; Stop 03/25/17 at 08:59 Sodium Biphosphate/ Sodium Phosphate (Fleet Enema) 1 ea DAILYPRN PRN IN CONSTIPATION; Start 02/22/17 at 16:15; Stop 03/24/17 at 16:14 Warfarin Sodium (Coumadin) 5 mg 1T@17 PO Last administered on 02/22/17 17:21; Start 02/22/17 at 17:00; Stop 02/22/17 at 17:01; Status DC HOPE STOCK MD Mar 01, 2017 08:58
[2017-03-01] MEDS: ACETAMINOPHEN TAB 650MG DOSE (2X325MG) PO PRN ×2 (12:44→21:09)
--- NOTE | 2017-03-01 13:12 | IPNPDOC ---
Subjective Date Seen The patient was seen on 03/01/17. Subjective Chief Complaint/HPI The patient is a 86-year-old female admitted with a reason for visit of Left Tka , Date Of Onset 02/21/2017. Events since last encounter Pt is seen in ARU apartment. She is OOB to chair and eating lunch. No verbalized complaints. ENT: Denies: Head Aches, Dysphagia Pulmonary: Denies: Dyspnea, Cough Cardiovascular: Denies: Chest Pain, Palpitations, Orthopnea, Paroxysmal Noc. Dyspnea, Lt Headedness Gastrointestinal: Denies: Nausea, Vomiting, Abdominal Pain, Diarrhea, Constipation Genitourinary: Denies: Dysuria, Frequency, Incontinence, Retention Objective Physical Examination General Exam: Positive: Alert Eye Exam: Positive: PERRLA ENT Exam: Positive: Atraumatic Neck Exam: Positive: Supple Chest Exam: Positive: Clear to auscultation, Normal air movement Heart Exam: Positive: Rate Normal, Regular Rhythm, Normal S1, Normal S2 Abdomen Exam: Positive: Normal bowel sounds Extremity Exam: Positive: Edema (trace distal pretib L>R. ), Normal pulses Skin Exam: Positive: Nl turgor and temperature Assessment /Plan Problems (1) Status post total left knee replacement Status: Acute Problem Text: * Mgmt as per ARU * pain control/bowel care as per ARU. * Coumadin as per Orthopedics. * Atalectasis CXR 02/22- I/S. Encourage OOB. (2) HTN (hypertension) Problem Text: * Norvasc. * BP noted 150s-160s. * Avapro increased 02/28 to 150mg daily with hold parameter * Monitor. (3) CKD (chronic kidney disease), stage III Problem Text: * BMP * Baseline appears to be 1.1-1.3. * Monitor, at baseline (4) History of DVT (deep vein thrombosis) Problem Text: * Coumadin as per Orthopedics. (5) HLD (hyperlipidemia) Problem Text: * statin (6) Anemia Problem Text: * post op anemia, Hgb 7.8 stable. * Monitor Hgb. * Fe studies with low Ferritin, Fe. Supplement added BID. * B12/folate-WNL. * Stool OB- neg. * Transfusion consent on chart * Cont to monitor. Plan/VTE VTE Prophylaxis Ordered?: Yes VS, I&O, 24H, Fishbone Vital Signs/I&O Vital Signs Date Time Temp Pulse Resp B/P (MAP) Pulse Ox O2 Delivery O2 Flow Rate FiO2 03/01/17 08:30 144/65 03/01/17 08:25 92 03/01/17 06:00 99.0 18 97 Room Air I&O- Last 24 Hours up to 6 AM 03/01/17 06:00 Intake Total 1440 ml Balance 1440 ml Laboratory Data 24H LABS Laboratory Tests 2 03/01/17 06:17: Prothrombin Time 22.6H, Prothromb Time International Ratio 1.98, Anion Gap 5L, Glomerular Filtration Rate 54.6, Blood Urea Nitrogen 23H, Creatinine 1.02, Sodium Level 138, Potassium Level 4.0, Chloride Level 105, Carbon Dioxide Level 28, Calcium Level 8.8, Aspartate Amino Transf (AST/SGOT) 11L, Alanine Aminotransferase (ALT/SGPT) 14, Alkaline Phosphatase 77, Total Bilirubin 0.6, Total Protein 6.6, Albumin 2.4L, Albumin/Globulin Ratio 0.57L CBC/BMP Laboratory Tests 03/01/17 06:17 Red Blood Count 2.95 L, Mean Corpuscular Volume 86.5, Mean Corpuscular Hemoglobin 26.4 L, Mean Corpuscular Hemoglobin Concent 30.6 L, Red Cell Distribution Width 14.4, Calcium Level 8.8, Aspartate Amino Transf (AST/SGOT) 11 L, Alanine Aminotransferase (ALT/SGPT) 14, Alkaline Phosphatase 77, Total Bilirubin 0.6, Total Protein 6.6, Albumin 2.4 L Microbiology Microbiology 02/26/17 Stool Occult Blood (NATALY) - Final, Complete Terri Salazar Mar 01, 2017 13:12
[2017-03-01 14:00] VITALS: BP 154/68
[2017-03-01] MEDS ORDERED: WARFARIN SOD 5 MG TAB PO ONE (17:00)
[2017-03-01 21:00] VITALS: BP 146/63
[2017-03-01] MEDS: SENNA 8.6 MG TAB (SENOKOT) PO SCH (21:08)
[2017-03-02 06:00] VITALS: BP 150/67
[2017-03-02] MEDS ORDERED: COUM2.5T11 PO (06:51)
[2017-03-02 08:01] LABS: MEAN CORPUSCULAR HEMOGLOBIN 26.1 pg (27.0-33.0); MEAN CORPUSCULAR HGB CONC 30.2 g/dl (32.0-36.5); MEAN CORPUSCULAR VOLUME 86.2 fl (80.0-96.0); RED CELL DISTRIBUTION WIDTH 14.6 % (11.5-14.5); WHITE BLOOD COUNT 10.4 K/mm3 (4.0-10.0)
[2017-03-02 08:12] LABS: ALBUMIN 2.9 GM/DL (3.2-5.2); ALBUMIN/GLOBULIN RATIO 0.66 (1.00-1.93); BILIRUBIN,TOTAL 0.6 MG/DL (0.2-1.0); CALCIUM LEVEL 8.8 MG/DL (8.8-10.2); CREATININE FOR GFR 1.18 MG/DL (0.55-1.02); GLOMERULAR FILTRATION RATE 46.1 (>32); POTASSIUM SERUM 3.8 MEQ/L (3.5-5.1); TOTAL PROTEIN 7.3 GM/DL (6.4-8.2)
[2017-03-02 08:13] LABS: INR 2.1
[2017-03-02] MEDS: PANTOPRAZOLE 40MG TAB (PROTONIX) PO SCH (08:22)
[2017-03-02 08:23] VITALS: BP 150/67
[2017-03-02] MEDS: MULTIVITAMINS/MINERALS THERAP 1 TAB PO SCH (08:23)
[2017-03-02] MEDS: busPIRone 5 MG TAB PO SCH (08:23)
[2017-03-02] MEDS: SIMVASTATIN 40 MG TAB PO SCH (08:23)
[2017-03-02] MEDS: FERROUS SULFATE 325MG TAB PO SCH (08:23)
[2017-03-02] MEDS: IRBESARTAN 150 MG TAB PO SCH (08:23)
[2017-03-02] MEDS: amLODIPine 10 MG TAB PO SCH (08:23)
[2017-03-02] MEDS ORDERED: AVAP150T31 PO (09:31)
--- NOTE | 2017-03-03 11:51 | PMRDS ---
DATE OF ADMISSION: 02/22/2017 DATE OF DISCHARGE: 03/02/2017 DIAGNOSES: 1. Rehabilitation of left total knee arthroplasty secondary to end stage osteoarthritis. 2. Post operative anemia of moderate severity. 3. Acute on chronic kidney disease. 4. Atherosclerotic cardiovascular disease with hyperlipidemia, hypertension, and stage 3 chronic kidney disease and prior history of deep vein thrombosis in 2008. 5. Gastroesophageal reflux disease. 6. Irritable bowel syndrome, which has been stable. HISTORY: Patient is an 86-year-old white female who is having progressive decline in comfort and mobility due to the worsening of her left knee. She had previously about three years ago had the right knee replaced and elected to have left total knee arthroplasty with Dr. Dennis Tian which was on 02/21/2017. Patient was doing fairly well though with moderate anemia postoperatively and was felt to be stable for transfer and institution of acute intensive rehabilitation on 02/22/2017 and was admitted to the acute rehabilitation at [facility]. PROCEDURES PERFORMED ON THIS UNIT: None. DIAGNOSTIC AND LABORATORY DATA: Patient followed with on blood counts with initial hemoglobin and hematocrit of 8.4 and 27.1 that declined on 02/26/2017 to 7.8 and 24.7, but then came back up and today is 8.6 and 28.4%. Patient with normal electrolytes on admission, however her BUN has ranged from 26 on admission on 28 the following day to current 24 with creatinine at 1.08 that climbed on the second day to 1.22 but is now done to 1.18 and albumin at 2.4 and today is 2.9. Patient has been on Coumadin anticoagulation for deep vein thrombosis prophylaxis and will continue this following discharge and today's level is 2.10. HOSPITAL COURSE: Patient admitted on 02/22/2017 to the acute rehabilitation unit to start a trial of musculoskeletal rehabilitation with physical and occupational therapy rehabilitation nursing and psychiatry with medicine consult due to multiple medical conditions and problems. Patient has shown very good effort and participation, though initially had a little bit of anxiousness and then this transitioned to anxiousness about would she be ready for discharge and that has cleared and patient reports looking forward to discharge at this time to home. A big part of that has also been her son who is a physical therapist giving her feedback. The patient has progressed in physical therapy from mid assist and sit to stand and contact assist and sit to stand with good minus standing balance and ambulating 77 feet and unable to do stairs to currently modified independent and sit to stand and other basic transfers and good standing static balance though only fair plus today, but good on standing dynamic balance yesterday. In occupational therapy patient with contact guard to standby assistance and base activities of daily living transfers now modified independent. In addition in physical therapy patient now ambulating with a rolling walker 234 feet as is independent with curves and car transfers. DISCHARGE MEDICATIONS: - Avapro 150 mg daily - Coumadin 2.5 mg to be adjusted by orthopedics. - acetaminophen 500 mg tablets 2 tablets daily as needed for pain - Xanax 2.5 mg by mouth twice a day as needed anxiety and agitation - Norvasc 10 mg daily - Vitamin B complex 1 tablet daily - BuSpar 15 mg by mouth twice a day - Os-Bienvenido 1200/1000 1 tablet daily - calcium with vitamin D 1 tablet daily - conjugated estrogen 0.625 mg by mouth as needed as needed for dry skin on a daily basis - fish oil 1000 mg 1 tablet twice a day - multivitamin 1 by mouth daily - eye vitamin 1 capsule daily - Nystatin 100,000 units externally twice a day to skin folds - Protonix 40 mg daily - simvastatin 40 mg daily COMPLICATIONS: None. DISCHARGE PLAN: Patient is discharged to home to use a standard rolling walker with home care to follow Coumadin and home PT to continue to work on advanced strength, endurance, mobility, to improve patient's to community level and patient to follow up with Dr. Dennis Tian on approximately 03/07/2017 and Eufemia Thompson, nurse practitioner or primary care within 4 weeks. She is on a regular diet. She is to use Opti foam to cover the skin incision. TIME SPENT ON DISCHARGE: Greater than 35 minutes.
== END 2017-03-02 12:15 | disposition home health service (06) | DRG 560 ==
LOC: M PM&R 16:14
PROVIDERS: ADMIT Physical Medicine & Rehabilitation; ATTEND Physical Medicine & Rehabilitation
DX: Z47.1 Aftercare following joint replacement surgery (principal); J98.11 Atelectasis; M17.12 Unilateral primary osteoarthritis, left knee; E78.5 Hyperlipidemia, unspecified; I12.9 Hypertensive chronic kidney disease with stage 1 through stage 4 chronic kidney disease, or unspecified chronic kidney disease; K21.9 Gastro-esophageal reflux disease without esophagitis; N18.3 Chronic kidney disease, stage 3 (moderate); K58.9 Irritable bowel syndrome, unspecified; M50.30 Other cervical disc degeneration, unspecified cervical region; E88.09 Other disorders of plasma-protein metabolism, not elsewhere classified; D64.9 Anemia, unspecified; M51.86 Other intervertebral disc disorders, lumbar region; Z79.899 Other long term (current) drug therapy; Z88.0 Allergy status to penicillin; Z88.5 Allergy status to narcotic agent; Z96.653 Presence of artificial knee joint, bilateral; Z86.718 Personal history of other venous thrombosis and embolism; Z79.01 Long term (current) use of anticoagulants; Z90.710 Acquired absence of both cervix and uterus; Z98.51 Tubal ligation status; Z88.8 Allergy status to other drugs, medicaments and biological substances

== ENCOUNTER → 2017-03-06 | Outpatient (REF) | payer MEDICARE ==
[~2017-03-06] MED LIST changes: +AVAP150T31 PO; +COUM2.5T11 PO
[2017-03-06 12:58] LABS: INR 1.6
== END ==
LOC: M SHH 12:36
PROVIDERS: ATTEND Orthopaedic Surgery
DX: M17.12 Unilateral primary osteoarthritis, left knee (principal)

== ENCOUNTER → 2017-03-09 | Outpatient (REF) | payer MEDICARE ==
[2017-03-09 13:14] LABS: INR 1.71
== END ==
LOC: M SHH 12:01
PROVIDERS: ATTEND Orthopaedic Surgery
DX: Z79.01 Long term (current) use of anticoagulants (principal); M17.12 Unilateral primary osteoarthritis, left knee

== ENCOUNTER → 2017-03-13 | Outpatient (REF) | payer MEDICARE ==
[2017-03-13 13:12] LABS: INR 2.05
== END ==
LOC: M LAB REF 12:29
PROVIDERS: ATTEND Orthopaedic Surgery
DX: Z79.01 Long term (current) use of anticoagulants (principal); M17.12 Unilateral primary osteoarthritis, left knee

== ENCOUNTER → 2017-03-16 | Outpatient (REF) | payer MEDICARE ==
[~2017-03-16] MED LIST changes: -AVAP75TA PO; +AVAP75TA7 PO; +BACT2OIN10 TOP; -BACT2OIN2 TOP; +CIPR-249 PO; -CIPR500T89 PO; -COUM2.5T11 PO; +COUM2.5T17 PO
[2017-03-16 10:11] LABS: INR 2.39
== END ==
LOC: M SHH 09:51
PROVIDERS: ATTEND Orthopaedic Surgery
DX: M17.12 Unilateral primary osteoarthritis, left knee (principal); Z79.01 Long term (current) use of anticoagulants

== ENCOUNTER → 2017-03-20 | Outpatient (REF) | payer MEDICARE ==
[2017-03-20 15:13] LABS: INR 1.34
== END ==
LOC: M SHH 14:27
PROVIDERS: ATTEND Nurse Practitioner Family
DX: Z79.01 Long term (current) use of anticoagulants (principal)

== ENCOUNTER → 2017-10-31 | Outpatient (REF) | payer MEDICARE ==
[2017-10-31 11:38] LABS: HEMATOCRIT 35.2 % (36.0-47.0); HEMOGLOBIN 10.4 g/dl (12.0-16.0); MEAN CORPUSCULAR HEMOGLOBIN 25.3 pg (27.0-33.0); MEAN CORPUSCULAR HGB CONC 29.5 g/dl (32.0-36.5); MEAN CORPUSCULAR VOLUME 85.6 fl (80.0-96.0); PLATELET COUNT, AUTOMATED 332 10^3/uL (150-450); RED BLOOD COUNT 4.11 10^6/uL (4.00-5.40); RED CELL DISTRIBUTION WIDTH 15.5 % (11.5-14.5); WHITE BLOOD COUNT 7.2 10^3/uL (4.0-10.0)
[2017-10-31 12:31] LABS: ALBUMIN 2.9 GM/DL (3.2-5.2); ALBUMIN/GLOBULIN RATIO 0.59 (1.00-1.93); ALKALINE PHOSPHATASE 92 U/L (45-117); ALT/SGPT 13 U/L (12-78); ANION GAP 10 MEQ/L (8-16); AST/SGOT 9 U/L (7-37); BILIRUBIN,TOTAL 0.4 MG/DL (0.2-1.0); BLOOD UREA NITROGEN 20 MG/DL (7-18); CALCIUM LEVEL 9.1 MG/DL (8.8-10.2); CARBON DIOXIDE LEVEL 25 MEQ/L (21-32); CHLORIDE LEVEL 107 MEQ/L (98-107); CHOLESTEROL LEVEL 101 MG/DL (<200); CHOLESTEROL RISK RATIO 1.836 (<5); CREATININE FOR GFR 1.23 MG/DL (0.55-1.30); GLOMERULAR FILTRATION RATE 43.9 (>32); GLUCOSE, FASTING 106 MG/DL (70-100); HDL CHOLESTEROL 55 MG/DL (>40); NON-HDL-C 46 MG/DL; POTASSIUM SERUM 4.1 MEQ/L (3.5-5.1); SODIUM LEVEL 142 MEQ/L (136-145); TOTAL PROTEIN 7.8 GM/DL (6.4-8.2); TRIGLYCERIDES LEVEL 80 MG/DL (<150)
== END ==
LOC: M LABDRAW1 11:21
DX: Z00.00 Encounter for general adult medical examination without abnormal findings (principal); E78.2 Mixed hyperlipidemia
CPT/HCPCS: 80053

== ENCOUNTER → 2018-01-25 | Outpatient (CLI) | payer MEDICARE | LOC: M SMT 13:23 | DX: I51.7 Cardiomegaly (principal); I27.20 Pulmonary hypertension, unspecified; J84.10 Pulmonary fibrosis, unspecified | CPT/HCPCS: 71046 ==

== ENCOUNTER → 2018-02-01 | Outpatient (REF) | payer MEDICARE ==
[2018-02-01 12:38] LABS: HEMATOCRIT 37.3 % (36.0-47.0); HEMOGLOBIN 11.1 g/dl (12.0-15.5); MEAN CORPUSCULAR HEMOGLOBIN 25.8 pg (27.0-33.0); MEAN CORPUSCULAR HGB CONC 29.8 g/dl (32.0-36.5); MEAN CORPUSCULAR VOLUME 86.7 fl (80.0-96.0); PLATELET COUNT, AUTOMATED 387 10^3/uL (150-450); RED CELL DISTRIBUTION WIDTH 17.7 % (11.5-14.5); WHITE BLOOD COUNT 12.8 10^3/uL (4.0-10.0)
[2018-02-01 13:01] LABS: ALBUMIN 3.3 GM/DL (3.2-5.2); ALBUMIN/GLOBULIN RATIO 0.72 (1.00-1.93); ALKALINE PHOSPHATASE 85 U/L (45-117); ALT/SGPT 15 U/L (12-78); ANION GAP 7 MEQ/L (8-16); AST/SGOT 6 U/L (7-37); BILIRUBIN,TOTAL 0.5 MG/DL (0.2-1.0); BLOOD UREA NITROGEN 34 MG/DL (7-18); CALCIUM LEVEL 9.7 MG/DL (8.8-10.2); CARBON DIOXIDE LEVEL 27 MEQ/L (21-32); CHLORIDE LEVEL 105 MEQ/L (98-107); CREATININE FOR GFR 1.21 MG/DL (0.55-1.30); GLOMERULAR FILTRATION RATE 44.7 (>32); GLUCOSE, FASTING 110 MG/DL (70-100); NT-PRO BNP 445 PG/ML (<450); POTASSIUM SERUM 4.5 MEQ/L (3.5-5.1); SODIUM LEVEL 139 MEQ/L (136-145); TOTAL PROTEIN 7.9 GM/DL (6.4-8.2)
== END ==
LOC: M LABDRAW1 11:38
DX: R06.2 Wheezing (principal); I10 Essential (primary) hypertension
CPT/HCPCS: 80053

== ENCOUNTER 2018-02-03 20:35 | Emergency (ER) | payer MEDICARE ==
[2018-02-03 22:54] LABS: HEMATOCRIT 38.9 % (36.0-47.0); HEMOGLOBIN 11.8 g/dl (12.0-15.5); MEAN CORPUSCULAR HEMOGLOBIN 26.2 pg (27.0-33.0); MEAN CORPUSCULAR HGB CONC 30.3 g/dl (32.0-36.5); MEAN CORPUSCULAR VOLUME 86.4 fl (80.0-96.0); PLATELET COUNT, AUTOMATED 352 10^3/uL (150-450); WHITE BLOOD COUNT 23.1 10^3/uL (4.0-10.0)
[2018-02-03 23:12] LABS: ANION GAP 9 MEQ/L (8-16); BLOOD UREA NITROGEN 39 MG/DL (7-18); CALCIUM LEVEL 9.5 MG/DL (8.8-10.2); CARBON DIOXIDE LEVEL 24 MEQ/L (21-32); CHLORIDE LEVEL 106 MEQ/L (98-107); CREATININE FOR GFR 1.63 MG/DL (0.55-1.30); ERYTHROCYTE SEDIMENTATION RATE 63 mm/hr (0-42); GLOMERULAR FILTRATION RATE 31.7 (>32); GLUCOSE, FASTING 158 MG/DL (70-100); POTASSIUM SERUM 4.6 MEQ/L (3.5-5.1); SODIUM LEVEL 139 MEQ/L (136-145)
== END 2018-02-04 00:07 | disposition home or self-care (01) ==
LOC: M ED 02-04 00:07
DX: L95.9 Vasculitis limited to the skin, unspecified (principal); I50.9 Heart failure, unspecified; I10 Essential (primary) hypertension; J44.9 Chronic obstructive pulmonary disease, unspecified; K58.9 Irritable bowel syndrome, unspecified; Z86.19 Personal history of other infectious and parasitic diseases; Z87.442 Personal history of urinary calculi; M54.9 Dorsalgia, unspecified; F41.9 Anxiety disorder, unspecified; Z79.82 Long term (current) use of aspirin; Z79.899 Other long term (current) drug therapy; Z88.5 Allergy status to narcotic agent; Z88.0 Allergy status to penicillin; Z88.6 Allergy status to analgesic agent
CPT/HCPCS: 80048

== ENCOUNTER → 2018-02-07 | Outpatient (REF) | payer MEDICARE ==
[2018-02-07 13:16] LABS: BASO % 0.3 % (0.0-1.0); EOS # 0.1 10^3/uL (0.0-0.50); EOS % 0.7 % (0.0-3.0); HEMOGLOBIN 11.1 g/dl (12.0-15.5); IMMATURE GRANULOCYTE % 0.5 % (0-3.0); LYMPH # 2.2 10^3/uL (1.5-4.5); LYMPH % 18.3 % (24.0-44.0); MEAN CORPUSCULAR HEMOGLOBIN 25.8 pg (27.0-33.0); MEAN CORPUSCULAR HGB CONC 29.2 g/dl (32.0-36.5); MEAN CORPUSCULAR VOLUME 88.4 fl (80.0-96.0); MONO % 8.3 % (0.0-5.0); NEUTROPHILS # 8.5 10^3/uL (1.8-7.7); NEUTROPHILS % 71.9 % (36.0-66.0); PLATELET COUNT, AUTOMATED 315 10^3/uL (150-450); RED CELL DISTRIBUTION WIDTH 17.4 % (11.5-14.5); WHITE BLOOD COUNT 11.9 10^3/uL (4.0-10.0)
== END ==
LOC: M SFHCPLAZ 10:52
DX: D72.829 Elevated white blood cell count, unspecified (principal)
CPT/HCPCS: 85025

== ENCOUNTER → 2018-02-26 | Outpatient (CLI) | payer MEDICARE | LOC: M CARPUL 12:54 | DX: R06.02 Shortness of breath (principal) | CPT/HCPCS: 94010 ==

== ENCOUNTER → 2018-05-31 | Outpatient (REF) | payer MEDICARE ==
[2018-05-31 15:46] LABS: ANION GAP 9 MEQ/L (8-16); BLOOD UREA NITROGEN 20 MG/DL (7-18); CALCIUM LEVEL 9.6 MG/DL (8.8-10.2); CARBON DIOXIDE LEVEL 25 MEQ/L (21-32); CHLORIDE LEVEL 107 MEQ/L (98-107); CREATININE FOR GFR 1.21 MG/DL (0.55-1.30); GLOMERULAR FILTRATION RATE 44.7 (>32); GLUCOSE, FASTING 97 MG/DL (70-100); POTASSIUM SERUM 4.2 MEQ/L (3.5-5.1); SODIUM LEVEL 141 MEQ/L (136-145)
== END ==
LOC: M LABDRAW1 13:02
DX: I10 Essential (primary) hypertension (principal)
CPT/HCPCS: 80048

== ENCOUNTER → 2018-09-03 | Outpatient (REF) | payer MEDICARE ==
[2018-09-03 12:33] LABS: HEMATOCRIT 37.2 % (36.0-47.0); MEAN CORPUSCULAR HEMOGLOBIN 26.1 pg (27.0-33.0); MEAN CORPUSCULAR HGB CONC 29.6 g/dl (32.0-36.5); MEAN CORPUSCULAR VOLUME 88.2 fl (80.0-96.0); PLATELET COUNT, AUTOMATED 324 10^3/uL (150-450); RED BLOOD COUNT 4.22 10^6/uL (4.00-5.40)
[2018-09-03 12:49] LABS: ALBUMIN 2.9 GM/DL (3.2-5.2); ALBUMIN/GLOBULIN RATIO 0.55 (1.00-1.93); ALKALINE PHOSPHATASE 93 U/L (45-117); ALT/SGPT 13 U/L (12-78); ANION GAP 8 MEQ/L (8-16); AST/SGOT 13 U/L (7-37); BILIRUBIN,TOTAL 0.3 MG/DL (0.2-1.0); BLOOD UREA NITROGEN 26 MG/DL (7-18); CALCIUM LEVEL 9.1 MG/DL (8.8-10.2); CARBON DIOXIDE LEVEL 27 MEQ/L (21-32); CHLORIDE LEVEL 108 MEQ/L (98-107); CHOLESTEROL LEVEL 109 MG/DL (<200); CHOLESTEROL RISK RATIO 2.137 (<5); CREATININE FOR GFR 1.28 MG/DL (0.55-1.30); GLOMERULAR FILTRATION RATE 41.9 (>32); GLUCOSE, FASTING 102 MG/DL (70-100); HDL CHOLESTEROL 51 MG/DL (>40); LDL CHOLESTEROL 42 MG/DL (<100); NON-HDL-C 58 MG/DL; POTASSIUM SERUM 4.5 MEQ/L (3.5-5.1); SODIUM LEVEL 143 MEQ/L (136-145); TOTAL 25(OH) VITAMIN D 39.1 NG/ML (30.0-100.0); TOTAL PROTEIN 8.2 GM/DL (6.4-8.2); TRIGLYCERIDES LEVEL 78 MG/DL (<150)
[2018-09-03 12:56] LABS: ERYTHROCYTE SEDIMENTATION RATE 48 mm/hr (0-42)
== END ==
LOC: M SFHCPLAZ 08:43
DX: I10 Essential (primary) hypertension (principal); E78.2 Mixed hyperlipidemia; D47.2 Monoclonal gammopathy; E55.9 Vitamin D deficiency, unspecified; Z87.898 Personal history of other specified conditions
CPT/HCPCS: 84165

== ENCOUNTER → 2019-04-17 | Outpatient (REF) | payer MEDICARE ==
[~2019-04-17] MED LIST changes: -ACET50TA PO; +ASPI81TA26 PO; +MAPA500T2 PO
[2019-04-17 13:06] LABS: BILIRUBIN,TOTAL 0.5 MG/DL (0.2-1.0); CALCIUM LEVEL 9.6 MG/DL (8.8-10.2); CHOLESTEROL RISK RATIO 1.527 (<5); CREATININE FOR GFR 1.37 MG/DL (0.55-1.30); GLOMERULAR FILTRATION RATE 38.6 (>32); POTASSIUM SERUM 4.3 MEQ/L (3.5-5.1); TOTAL PROTEIN 8.1 GM/DL (6.4-8.2)
== END ==
LOC: M LABDRAW1 12:00
PROVIDERS: ATTEND Internal Medicine Cardiovascular Disease
DX: I10 Essential (primary) hypertension (principal); E78.5 Hyperlipidemia, unspecified; R06.02 Shortness of breath

== ENCOUNTER → 2019-04-17 | Outpatient (REF) | payer MEDICARE ==
[2019-04-17 13:00] LABS: TOTAL PROTEIN 8.4 GM/DL (6.4-8.2)
[2019-04-17 13:09] LABS: TOTAL 25(OH) VITAMIN D 41.8 NG/ML (30.0-100.0)
[2019-04-18 10:36] LABS: ALBUMIN 3.63 GM/DL (3.29-5.55); ALBUMIN % 43.2 % (55.8-66.1); ALPHA-1-GLOBULIN % 5.5 % (2.9-4.9); ALPHA-1-GLOBULINS 0.46 GM/DL (0.17-0.41); ALPHA-2-GLOBULINS 0.99 GM/DL (0.42-0.99); ALPHA-2-GLOBULINS % 11.8 % (7.1-11.8); BETA-1-GLOBULINS 0.46 GM/DL (0.28-0.60)
[2019-04-18 10:37] LABS: BETA-1-GLOBULINS % 5.5 % (4.7-7.2); BETA-2-GLOBULINS 0.32 GM/DL (0.19-0.55); BETA-2-GLOBULINS % 3.8 % (3.2-6.5); GAMMA GLOBULIN % 30.2 % (11.1-18.8); GAMMA GLOBULINS 2.54 GM/DL (0.65-1.58)
== END ==
LOC: M LABDRAW1 11:57
PROVIDERS: ATTEND Nurse Practitioner Adult Health
DX: I10 Essential (primary) hypertension (principal); E55.9 Vitamin D deficiency, unspecified; D47.2 Monoclonal gammopathy; E78.2 Mixed hyperlipidemia; E78.5 Hyperlipidemia, unspecified; R06.02 Shortness of breath

== ENCOUNTER 2019-08-11 12:23 | Emergency (ER) | payer MEDICARE ==
[~2019-08-11] VITALS: Ht 167.6 cm; Wt 92.3 kg
[2019-08-11 13:43] LABS: BASO % 0.4 % (0.0-1.0); EOS # 0.1 10^3/uL (0.0-0.5); EOS % 0.7 % (0.0-3.0); HEMATOCRIT 36.5 % (36.0-47.0); HEMOGLOBIN 10.8 g/dl (12.0-15.5); LYMPH # 1.4 10^3/uL (1.5-5.0); LYMPH % 14.7 % (24.0-44.0); MEAN CORPUSCULAR HEMOGLOBIN 26.3 pg (27.0-33.0); MEAN CORPUSCULAR HGB CONC 29.6 g/dl (32.0-36.5); MONO # 0.9 10^3/uL (0.0-0.8); NEUTROPHILS # 7.2 10^3/uL (1.5-8.5); NEUTROPHILS % 74.6 % (36.0-66.0); PLATELET COUNT, AUTOMATED 303 10^3/uL (150-450); WHITE BLOOD COUNT 9.6 10^3/uL (4.0-10.0)
[2019-08-11 14:08] LABS: ALBUMIN 2.9 GM/DL (3.2-5.2); ALT/SGPT 18 U/L (12-78); BILIRUBIN,TOTAL 0.3 MG/DL (0.2-1.0); BLOOD UREA NITROGEN 27 MG/DL (7-18); CALCIUM LEVEL 10.2 MG/DL (8.8-10.2); CARBON DIOXIDE LEVEL 28 MEQ/L (21-32); CHLORIDE LEVEL 106 MEQ/L (98-107); CREATININE FOR GFR 1.49 MG/DL (0.55-1.30); GLOMERULAR FILTRATION RATE 35.1 (>32); GLUCOSE, FASTING 176 MG/DL (70-100); POTASSIUM SERUM 4.2 MEQ/L (3.5-5.1); SODIUM LEVEL 141 MEQ/L (136-145)
[2019-08-11] MEDS ORDERED: NS 500 ML IV ONE (15:30)
[2019-08-11 15:43] LABS: CK-MB VALUE MASS < 1.0 NG/ML (<3.6); CPK CREATINE PHOSPHOKINASE 22 U/L (26-192); MB/CK RELATIVE INDEX 4.55 (< OR =4); TROPONIN I < 0.02 NG/ML (< 0.10)
[2019-08-11 16:30] VITALS: BP 173/81
--- NOTE | 2019-08-11 19:25 | ECGEPIP ---
[facility] - ED Test Date: 2019-08-11 Pat Name: TIFFANY WEEKS Department: Room: - Gender: Female Signal Integrity Engineer: : [id number] Requested By: Sharifa Mojica Order Number: [id number] Reading MD: Sharifa Mojica Measurements Intervals [place] Rate: 87 P: 38 KS: 155 QRS: -7 QRSD: 101 T: 15 QT: 373 QTc: 451 Interpretive Statements SINUS RHYTHM VOLTAGE CRITERIA FOR LVH NONSPECIFIC ST T WAVE CHANGES DELAYED R WAVE PROGRESSION 02/08/[address] T WAVE CHANGES Electronically Signed on 08-11-2019 19:25:27 EST by Sharifa Mojica
--- NOTE | 2019-08-12 07:59 | REP ---
REASON: Dizziness. COMPARISON: 07/25/2013 There is no change from the prior exam. There is no evidence of an acute intracranial hemorrhagic or nonhemorrhagic event. There is no change in the appearance of the ventricles or sulci. There is no shift of the midline structures. There is no change in the deep white matter. There is no change in the skull or skull base. IMPRESSION: No change. Chronic changes. Electronically Signed by Harvey Robert DO 08/12/2019 12:09 P
--- NOTE | 2019-08-12 08:07 | REP ---
REASON: Dizziness. COMPARISON: 01/25/2018 The technique utilized in obtaining the radiograph has magnified the cardiac silhouette and accentuated the interstitial markings. There is cardiomegaly accentuated by technique. The lung weaver are clear. The osseous structures are stable. IMPRESSION: Cardiomegaly. Electronically Signed by Harvey Robert DO 08/12/2019 12:10 P
== END 2019-08-11 16:45 | disposition home or self-care (01) ==
LOC: M ED 12:23
DX: R42 Dizziness and giddiness (principal); I95.1 Orthostatic hypotension; I10 Essential (primary) hypertension; M54.9 Dorsalgia, unspecified; K21.9 Gastro-esophageal reflux disease without esophagitis; F41.9 Anxiety disorder, unspecified; I51.7 Cardiomegaly; Z79.82 Long term (current) use of aspirin; Z79.899 Other long term (current) drug therapy; Z88.0 Allergy status to penicillin; Z88.1 Allergy status to other antibiotic agents; Z88.5 Allergy status to narcotic agent

== ENCOUNTER → 2019-08-28 | Outpatient (REF) | payer MEDICARE ==
[~2019-08-28] MED LIST changes: -SIMV40TA2 PO; +SIMV40TA20 PO
[2019-08-28 13:06] LABS: HEMATOCRIT 37.3 % (36.0-47.0); HEMOGLOBIN 11.1 g/dl (12.0-15.5); MEAN CORPUSCULAR HEMOGLOBIN 26.1 pg (27.0-33.0); MEAN CORPUSCULAR HGB CONC 29.8 g/dl (32.0-36.5); MEAN CORPUSCULAR VOLUME 87.8 fl (80.0-96.0); PLATELET COUNT, AUTOMATED 449 10^3/uL (150-450); RED BLOOD COUNT 4.25 10^6/uL (4.00-5.40); WHITE BLOOD COUNT 16.4 10^3/uL (4.0-10.0)
[2019-08-28 13:51] LABS: ALBUMIN 3.1 GM/DL (3.2-5.2); BILIRUBIN,TOTAL 0.8 MG/DL (0.2-1.0); CALCIUM LEVEL 9.9 MG/DL (8.8-10.2); CHOLESTEROL RISK RATIO 1.87 (<5); CREATININE FOR GFR 1.5 MG/DL (0.55-1.30); GLOMERULAR FILTRATION RATE 34.8 (>32); POTASSIUM SERUM 4.1 MEQ/L (3.5-5.1); TOTAL 25(OH) VITAMIN D 51.2 NG/ML (30.0-100.0); TOTAL PROTEIN 8.5 GM/DL (6.4-8.2)
== END ==
LOC: M SFHCPLAZ 10:54
PROVIDERS: ATTEND Nurse Practitioner Adult Health
DX: I10 Essential (primary) hypertension (principal); E78.2 Mixed hyperlipidemia; E55.9 Vitamin D deficiency, unspecified; D47.2 Monoclonal gammopathy